=== PATIENT | male | born 1940 | race Caucasian/White ===

== ENCOUNTER 2020-08-15 09:51 | Inpatient (IN) | payer OTHER ==
--- OUTSIDE RECORDS SUMMARY | 2020-08-15 10:09 | XMS REPORT | Summary of Care ---
:1940 Author Organization [facility] Address [address] [place] [id number] Care Team Providers Name Role Phone Pcp, Patient Does Not Have A Primary Care Provider +[id number] 0-0000 Reason for Visit Reason Comments Assessment Encounter Details Date Type Department Care Team Description 06/01/2020 Telephone [facility] Miguel Angel Floyd MD Assessment Neurology-[address] [place] [id number] [address] [place] [address] [phone] Allergies Active Allergy Reactions Severity Noted Date Comments Epinephrine Unknown - See comments 06/13/2011 Was t old not to use while on Parkinson me ds Morphine Itching 05/23/2019 documented as of this encounter (statuses as of 06/05/2020) Medications Medication Sig Dispensed Refills Start Date End Date Status levothyroxine 25 mcg Take 25 mcg by 0 Active tablet mouth every morning. pioglitazone 30 mg Take 30 mg by mouth 0 Active tablet daily. glimepiride 4 mg Take 4 mg by mouth 0 Active tablet daily with breakfast. foLIC acid 1 mg Take 1 mg by mouth 0 Active tablet daily. triamterene-hydrochl Take 1 tablet by 0 Active orothiazid 37.5-25 mouth daily. mg tablet rOPINIRole 3 mg Take 6 mg by mouth 0 Active tablet at bedtime. losartan 25 mg Take 25 mg by mouth 0 Active tablet daily. escitalopram oxalate Take 20 mg by mouth 0 Active 20 mg tablet daily. gabapentin 300 mg Take 300 mg by 0 Active capsule mouth 3 (three) times daily. clonazePAM 0.5 mg Take 0.5 mg by 0 Active tablet mouth 3 (three) times daily. methotrexate 25 by Intramuscular 0 Active mg/mL injection route once now. inFLIXimab 100 mg Inject 0 Ac tive injection intravenously once now. aspirin (ASPIRIN LOW Take 81 mg by mouth 0 Active DOSE) 81 mg EC daily. tablet acetaminophen Take 650 mg by 0 A ctive (TYLENOL) 325 mg Cap mouth as needed. acetaminophen-codein Take 1 tablet by 0 Active e (TYLENOL-CODEINE mouth every 4 #3) 300-30 mg tablet (four) hours as needed. ZIPRASIDONE 20 mg TAKE 1 CAPSULE BY 90 capsule 1 01/18/2020 Active capsule MOUTH AT BEDTIME NEEDED FOR INSOMNIA. carbidopa-levodopa Take 2 tablets by 120 tablet 3 01/27/2020 Active 25-250 mg per mouth 2 (two) times tabletIndications: daily. 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 He states his dad's PCP prescribed Xanax and after the second dose hehad hallucinations. Reports he has not taken any more. Instructed to contact patient's PCP to followup d/t he prescribed RX. Reports patient is having anxiety issues. Will contact his sister to contact PCP. Closing encounter. elephone Encounter - Kamlesh Weaver - 06/01/2020 3:20 PM CDTJojose d Pineda is a 79 year old male hallucinating since taking xanax x 1 day,please contact at [phone] signed by Kamlesh Weaver at 06/01/2020 3:22 PM CDT documented in this encounter Plan of Treatment Health Maintenance Due Date Last Done Comments HgA1C 1941 EYE EXAM 1950 LDL-C 1950 URINE MICROALBUMIN 1950 FOOT EXAM 1958 DTaP,Tdap,and Td Vaccines (1 - Tdap) 1959 Zoster Recombinant Vaccine (SHINGRIX) 1990 (1 of 2) Medicare Wellness Visit 2005 PNEUMOCOCCAL VACCINES 65+ (1 of 1 - 2005 PPSV23) INFLUENZA VACCINE (#1) 2020 06/28/2018, 05/29/2018, 07/06/2017 CREATININE (SERUM) 06/24/2020 06/24/2019 Depression Screening 11/18/2020 11/18/2019 documented as of this encounter Results Not on filedocumented in this encounter Insurance Payer Benefit Plan Subscriber ID Effective Phone Address Typ e / Group Dates AETNA - AETNA [id number] 2014-[address] [employer] are Adv [place]NAGED [place]ICARE [place] nt [id number] [place] [address] documented as of this encounter Advance Directives Type Date 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
--- OUTSIDE RECORDS SUMMARY | 2020-08-15 10:09 | XMS REPORT | Continuity of Care Document ---
:1940 Author Organization [facility] t Address [address] [place] [address] Care Team Providers Name Role Phone Mariel BAILEY, Gene Attending Clinician Payers Payer Name Policy Type Policy Number Effective Date Expiration Date S ource Problems This patient has no known problems. Allergies, Adverse Reactions, Alerts Allergy Allergy Status Severity Reaction(s) Onset Inactive Treating Comm ents Source Name Type Date Date Clinician morphine DA Active [place] 2018- [facility] [place] morphine DA Active [place] 2018- [facility] [place] [facility] morphine DA Active [place] 2018- [facility] [place] [facility] No Known DA Active U 2019 [facility] [place] No Known DA Active U 2016- [facility]07 [place] [facility] Medications This patient has no known medications. Procedures This patient has no known procedures. Encounters Start End Encounter Admission Attending Care Care Encounter Source Date/Time Date/Time Type Type Clinicians Facility Department ID 2020-08-14 2020-08-14 [facility] Mariel [facility] [id number] 07:48:28 23:59:00 Encounter Migue lAngel Faria [id number] [place] [id number] [place] [id number] 2020-08-01 2020-08-01 Telephone Mariel [facility] [id number] 00:00:00 00:00:00 Miguel Angel Faria [id number] [place] 4[facility]7.2.686 [id number] n[facility] 092 Building Results Test Description Test Time Test Comments Results Result Comments Source GLUBED 2019-09-09 11:57:00 Test Item Value Reference Range Interpretation Comme nts GLUBED (test code = GLUBED) 173 mg/dL 60-125 H [id number] 06:06:00 Test Item Value Reference Range Interpretation Comments GLUBED (test code = GLUBED) 103 mg/dL 60-125 N [id number] 20:34:00 Test Item Value Reference Range Interpretation Comments GLUBED (test code = GLUBED) 177 mg/dL 60-125 H [id number] 16:54:00 Test Item Value Reference Range Interpretation Comments GLUBED (test code = GLUBED) 128 mg/dL 60-125 H [id number] 12:10:00 Test Item Value Reference Range Interpretation Comments GLUBED (test code = GLUBED) 193 mg/dL 60-125 H [id number] 05:51:00 Test Item Value Reference Range Interpretation Comments GLUBED (test code = GLUBED) 117 mg/dL 60-125 N [id number] 20:33:00 Test Item Value Reference Range Interpretation Comments GLUBED (test code = GLUBED) 219 mg/dL 60-125 H [id number] 17:04:00 Test Item Value Reference Range Interpretation Comments GLUBED (test code = GLUBED) 286 mg/dL 60-125 H [id number] 12:08:00 Test Item Value Reference Range Interpretation Comments GLUBED (test code = GLUBED) 145 mg/dL 60-125 H [id number] 12:08:00 Test Item Value Reference Range Interpretation Comments GLUBED (test code = GLUBED) 85 mg/dL 60-125 N [id number] 12:07:00 Test Item Value Reference Range Interpretation Comments GLUBED (test code = GLUBED) 265 mg/dL 60-125 H - XR SPINE 1 V SPEC [id number] 11:42:00 Patient Name: GUS HUDDLESTON Unit No: [id number] EXAMS: CPT CODE: [id number] XR SPINE 1 V SPEC LEVEL 93136 3 LATERAL INTRAOPERATIVE VIEWS OF THE LUMBAR SPINE Film 1: Markers overlies soft tissues posterior to L2. Film 2: Metal probes overlie the posterior elements at the L2 and L3 levels. Film 3: Metal probe overlies the L4 pedicle. at 1142 Reported and signed by: Pita Martínez MD CC: Denisse Stanley M.D. Technologist: LUIS DANIEL SANDOVAL. RT(R) Transcribed D/ (2451) tJULIÁNR.GVG [facility] [place] NAME: GUS HUDDLESTON [address] [facility] PHYS: Jason Almaraz MD : 1940 AGE: 79 SEX: M [place] [address] LOC: Y.506 A PHONE #: [phone] EXAM DATE: 09/06/2019 STATUS: REG [facility] FAX #: [phone] RAD #: [id number] D/C DT PAGE 1 Signed Report Patient Name: GUS HUDDLESTON Unit No: [id number] EXAMS: CPT CODE: [id number] XR SPINE 1 V SPEC LEVEL 21746 <Continued> Orig Print D/T: S: 09/07/2019 (7133) [facility] [place] NAME: GUS HUDDLESTON [address] [facility] PHYS: Jason Flores MD : 1940 AGE: 79 SEX: M [place] [address] LOC: Y.506 A PHONE #: [phone] EXAM DATE: 09/06/2019 STATUS: REG [facility] FAX #: [phone] RAD #: [id number] D/C DT PAGE 2 Signed Report- XR SPINE 1 V SPEC [id number] 11:42:00 Patient Name: GUS HUDDLESTON Unit No: [id number] EXAMS: CPT CODE: [id number] XR SPINE 1 V SPEC LEVEL 16154 3 LATERAL INTRAOPERATIVE VIEWS OF THE LUMBAR SPINE Film 1: Markers overlies soft tissues posterior to L2. Film 2: Metal probes overlie the posterior elements at the L2 and L3 levels. Film 3: Metal probe overlies the L4 pedicle. at 1142 Reported and signed by: Pita Martínez MD CC: Denisse Stanley M.D. Technologist: NATALIE BENSON (RT.R) Transcribed D/ (7953) Farzaneh.GVG [facility] [place] NAME: GUS HUDDLESTON [address] [facility] PHYS: Jason Flores MD : 1940 AGE: 79 SEX: M [place] [address] LOC: YKusum506 A PHONE #: [phone] EXAM DATE: 09/06/2019 STATUS: REG [facility] FAX #: [phone] RAD #: [id number] D/C DT PAGE 1 Signed Report Patient Name: GUS HUDDLESTON Unit No: [id number] EXAMS: CPT CODE: [id number] XR SPINE 1 V SPEC LEVEL 93200 <Continued> Orig Print D/T: S: 09/07/2019 (6546) [facility] [place] NAME: GUS HUDDLESTON [address] [facility] PHYS: Jason Flores MD : 1940 AGE: 79 SEX: M [place], [place] [address] LOC: Y.506 A PHONE #: [phone] EXAM DATE: 09/06/2019 STATUS: REG [facility] FAX #: [phone] RAD #: [id number] D/C DT PAGE 2 Signed Report- XR SPINE 1 V SPEC [id number] 11:42:00 Patient Name: GUS HUDDLESTON Unit No: [id number] EXAMS: CPT CODE: [id number] XR SPINE 1 V SPEC LEVEL 90087 3 LATERAL INTRAOPERATIVE VIEWS OF THE LUMBAR SPINE Film 1: Markers overlies soft tissues posterior to L2. Film 2: Metal probes overlie the posterior elements at the L2 and L3 levels. Film 3: Metal probe overlies the L4 pedicle. at 1142 Reported and signed by: Pita Martínez MD CC: Denisse Stanley M.D. Technologist: NATALIE BENSON (RT.R) Transcribed D/ (1216) tJULIÁNR.GVG [facility] [place] NAME: GUS HUDDLESTON [address] [facility] PHYS: Jason Flores MD : 1940 AGE: 79 SEX: M [place] [address] LOC: Y.506 A PHONE #: [phone] EXAM DATE: 09/06/2019 STATUS: REG [facility] FAX #: [phone] RAD #: [id number] D/C DT PAGE 1 Signed Report Patient Name: GUS HUDDLESTON Unit No: [id number] EXAMS: CPT CODE: [id number] XR SPINE 1 V SPEC LEVEL 92258 <Continued> Orig Print D/T: S: 09/07/2019 (3977) [facility] [place] NAME: GUS HUDDLESTON [address] [facility] PHYS: Jason Flores MD : 1940 AGE: 79 SEX: M [place] [address] LOC: Y.506 A PHONE #: [phone] EXAM DATE: 09/06/2019 STATUS: REG [facility] FAX #: [phone] [facility] #: [id number] D/C DT PAGE 2 Signed ReportBASIC METABOLIC [id number] 10:47:00 Test Item Value Reference Range Interpretation Comments SODIUM (test code = 139 mmol/L 136-145 N NA) POTASSIUM (test code = 4.7 mmol/L 3.5-5.1 N K) CHLORIDE (test code = 100.0 mmol/L 98-107 N CL) CARBON DIOXIDE (test 27.0 mmol/L 21-32 N code = CO2) GLUCOSE (test code = 271 mg/dL 70-110 H GLU) BLOOD UREA NITROGEN 18 mg/dL 7-18 N (test code = BUN) GLOMERULAR FILTRATION 81.4 >60 Unit o f measure: RATE (test code = GFR) mL/mi n/1.73 [id number] Range:Healthy Adults >90 mL/min/1.73 m2 For Chronic Kidney Disease: St age II Mild Decrease in GFR 60-90 St age III Moderate Decrease in GFR 30-59 Stage IV Severe Decre ase in GFR 15- 29 Stage V Kidney Failure <15 CREATININE (test code 0.90 mg/dL 0.55-1.30 N = CREAT) CALCIUM (test code = 8.5 mg/dL 8.2-10.1 N CA) [id number] 05:46:00 Test Item Value Reference Range Interpretation Comments GLUBED (test code = GLUBED) 199 mg/dL 60-125 H [id number] 10:36:00 Test Item Value Reference Range Interpretation Comments GLUBED (test code = GLUBED) 122 mg/dL 60-125 N BASIC METABOLIC [id number] 19:46:00 Test Item Value Reference Range Interpretation Comments SODIUM (test code = 138 mmol/L 136-145 N NA) POTASSIUM (test code = 4.4 mmol/L 3.5-5.1 N K) CHLORIDE (test code = 101.0 mmol/L 98-107 N CL) CARBON DIOXIDE (test 27.5 mmol/L 21-32 N code = CO2) GLUCOSE (test code = 143 mg/dL 70-110 H GLU) BLOOD UREA NITROGEN 20 mg/dL 7-18 H (test code = BUN) GLOMERULAR FILTRATION 114.4 >60 Unit o f measure: RATE (test code = GFR) mL/mi n/1.73 [id number] Range:Healthy Adults >90 mL/min/1.73 m2 For Chronic Kidney Disease: St age II Mild Decrease in GFR 60-90 St age III Moderate Decrease in GFR 30-59 Stage IV Severe Decre ase in GFR 15- 29 Stage V Kidney Failure <15 CREATININE (test code 0.67 mg/dL 0.55-1.30 N = CREAT) CALCIUM (test code = 8.8 mg/dL 8.2-10.1 N CA) URINALYSIS [id number] 17:07:00 Test Item Value Reference Range Interpretation Comments UA COLOR (test code = COLU) YELLOW YELLOW UA APPEARANCE (test code = CLEAR CLEAR APPU) UA GLUCOSE DIPSTICK (test code TRACE NEGATIVE A = DGLUU) UA BILIRUBIN DIPSTICK (test NEGATIVE NEGATIVE code = BILU) UA KETONE DIPSTICK (test code TRACE mg/dL NEGATIVE = KETU) UA SPECIFIC GRAVITY (test code >= 1.030 1.003-1.035 = SGU) UA BLOOD DIPSTICK (test code = NEGATIVE NEGATIVE RONALD) UA PH DIPSTICK (test code = 5.5 >6.5 CORA) UA PROTEIN DIPSTICK (test code NEGATIVE mg/dL NEG = PROU) UA UROBILINIOGEN DIPSTICK 0.2 mg/dL NORM (test code = URO) UA NITRITE DIPSTICK (test code NEGATIVE NEG = NORMAN) UA LEUKOCYTE ESTERASE DIPSTICK NEGATIVE NEGATIVE (test code = LEUU) UA WBC (test code = WBCU) <5 /HPF 0-2 UA RBC (test code = RBCU) 2-5 /HPF 0-2 A UA EPITHELIAL CELLS (test code RARE /HPF 0-2 = EPIU) UA BACTERIA (test code = BACU) FEW /HPF NONE UA MUCUS (test code = MUCU) 2+ /LPF NONE SEEN CBC W/AUTO [id number] 16:44:00 Test Item Value Reference Range Interpretation Comments WHITE BLOOD CELL (test code = WBC) 5.7 K/mm3 5.7-10.5 N RED BLOOD CELL (test code = RBC) 3.71 M/mm3 4.2-5.4 L HEMOGLOBIN (test code = HGB) 12.3 g/dL 12-16 N HEMATOCRIT (test code = HCT) 38.0 % 37-47 N MEAN CELL VOLUME (test code = MCV) 102 fL 80-98 H MEAN CELL HGB (test code = MCH) 33.2 pg 27-34 N MEAN CELL HGB CONCENTRATION (test 32.4 g/dL 30.8-34.1 N code = MCHC) RED CELL DISTRIBUTION WIDTH (test 14.5 % 11-16 N code = RDW) PLT (test code = PLT) 197 K/mm3 130-400 N MEAN PLATELET VOLUME (test code = 11.1 fL 8.9-12.1 N MPV) NEUTROPHIL % (test code = NT%) 66.3 % 45-70 N LYMPHOCYTE % (test code = LY%) 25.8 % 20-40 N MONOCYTE % (test code = MO%) 6.5 % 3-10 N EOSINOPHIL % (test code = EO%) 0.7 % 1-5 L BASOPHIL % (test code = BA%) 0.2 % 0.0-1.1 N NEUTROPHIL # (test code = NT#) 3.75 K/mm3 2.00-7.50 N LYMPHOCYTE # (test code = LY#) 1.46 K/mm3 1.50-4.00 L MONOCYTE # (test code = MO#) 0.37 K/mm3 0.2-0.8 N EOSINOPHIL # (test code = EO#) 0.04 K/mm3 0.04-0.4 N BASOPHIL # (test code = BA#) 0.01 K/mm3 0.02-0.10 L MANUAL DIFF REQUIRED (test code = NO MANUAL DIFF MDIFF) NUCLEATED RED BLOOD CELL (test 0 % 0-0 N code = NRBC) - XR FLUORO FOR SPINE [id number] 17:33:00 Patient Name: GUS HUDDLESTON Unit No: [id number] EXAMS: CPT CODE: [id number] XR FLUORO FOR SPINE INJ 75052 LUMBAR EPIRADICULAR INJECTION REFERRAL PHYSICIAN: Denisse Stanley M.D. PREOPERATIVE DIAGNOSIS: Lumbar Radiculitis POSTOPERATIVE DIAGNOSIS: L2-3 disc degeneration with spinal stenosis and possible bilateral lower extremity radicularclaudication PROCEDURES PERFORMED: Fluoroscopically guided needle localization of the bilateral L2 and bilateral L3 spinal nerves with transforaminal epidurograms and epiduralinjection of local anesthetic and steroid. FINDINGS: Somewhat tight flow seen through all foramen and proximal flow was very limited cephalad across the L2-3 degenerative disc that shows marked vacuum phenomena. Aspiration was negative. Provocation was negative. Anesthetic response was positive with the patient noting complete relief of his primary low back pain at time of procedure. Preinjection VAS 7/10. Postinjection VAS 0/10. Steroid response pending follow-up. ESTIMATED BLOOD LOSS: Minimal ANESTHESIA: TIVA COMPLICATIONS: None DETAILS OF PROCEDURE: After obtaining stable vital signs, informed consent and IV access, with no contraindications, the patient was taken to the operating room and placed in a prone position with all extremities padded and appropriate monitors placed. The patient was sterilely prepped and draped over the lumbosacral spine. Using fluoroscopic visualization the insertion sites were marked for paravertebral approaches and using standard technique, a 25 gauge needle was advanced to the base of each pedicle wi thout paresthesias. Isovue-300 contrast 0.2 mL of was injected incrementally with frequent negative aspirations to produce each epidurogram. There were no signs of intravascular or intrathecal uptake. Bupivicaine 0.75% 0.25 mL with lidocaine 4% 0.25 mL and Decadron 5 mg was then incrementally injected with frequent negative aspirations and again there were no signs of intravascular or intrathecal uptake. The needles were removed and the patient was taken tothe PACU in good condition. at 6403 Reported and signed by: Erik Nguyen M.D. CC: Technologist: Jessika Key(Leif) Transcribed D/ (5800) Oksana [facility] NAME: GUS HUDDLESTON [address] [facility] PHYS: Erik Castellano MD [place], [place] [address] : 1940 AGE: 78 SEX: M LOC: VetoDONA PHONE #: [phone] EXAM DATE: 05/26/2019 STATUS: REG [facility] FAX #: [phone] RAD #: [id number] D/C DT PAGE 1 Signed Report Patient Name: GUS HUDDLESTON Unit No: [id number] EXAMS: CPT CODE: [id number] XR FLUORO FOR SPINE INJ 20798 <Continued> Orig Print D/T: S: 05/26/2019 (1736) [facility] NAME: GUS HUDDLESTON [address] [facility] PHYS: Erik Castellano MD [place], [place] [address] : 1940 AGE: 78 SEX: M LOC: MARTIN PHONE #: [phone] EXAM DATE: 05/26/2019 STATUS: REG [facility] FAX #: [phone] RAD #: [id number] D/C DT PAGE 2 Signed [id number] 14:46:00 Test Item Value Reference Range Interpretation Comments GLUBED (test code = GLUBED) 103 mg/dL 60-125 N [id number] 13:12:00 Test Item Value Reference Range Interpretation Comments GLUBED (test code = GLUBED) 102 mg/dL 60-125 N - XR FLUORO FOR SPINE [id number] 11:04:00 Patient Name: GUS HUDDLESTON Unit No: [id number] EXAMS: CPT CODE: [id number] XR FLUORO FOR SPINE INJ 12977 LUMBAR EPIRADICULAR INJECTION REFERRAL PHYSICIAN: Denisse Stanley M.D. PREOPERATIVE DIAGNOSIS: Lumbar Radiculitis POSTOPERATIVE DIAGNOSIS: Markedly degenerative L2-3 disc with displacement, spinal stenosis and bilateral lower extremity radicular pain PROCEDURES PERFORMED: Fluoroscopically guided needle localization of the bilateral L2 and bilateral L3 spinal nerves with transforaminal epidurograms and epidural injection of local anesthetic and steroid. FINDINGS: Flow was obtained through all foramen however proximal flow was fairly obstructed across the L2-3 disc with moderate to marked anterior epidural displacement. Provocation with injection was negative. Anesthetic response was positive with the patient noting relief of his low back and bilateral thigh pain. Preinjection VAS 6/10. Postinjection VAS 0/10. Steroid response pending follow-up. ESTIMATED BLOOD LOSS: Minimal ANESTHESIA: TIVA COMPLICATIONS: None DETAILS OF PROCEDURE: After obtaining stable vital signs, informed consent and IV access, with no contraindications, the patient was taken to the operating room andplaced in a prone position with all extremities padded and appropriate monitors placed. The patient was sterilely prepped and draped over the lumbosacral spine. Using fluoroscopic visualization the insertion sites were marked for paravertebral approaches and using standard technique, a 25 gauge needle was advanced to the base of each pedicle without paresthesias. Isovue-300 contrast 0.2 mL of was injected incrementally with frequent negative aspirations to produce each epidurogram. There were no signs of intravascular or intrathecal uptake. Bupivicaine 0.75% 0.25 mL with lidocaine 4% 0.25 mL and Decadron 5 mg was then incrementally injected with frequent negative aspirations and again there were no signs of intravascular or intrathecal uptake. The needles were removed and the patient was taken to the PACU in good condition. Electronically Signed by Patrice Nguyen on04/20/2019 at 1104 Reported and signed by: Erik Nguyen M.D. CC: Rafael Ramos MD; Erik Nguyen MD Technologist: FAY MCDONALD RT(R) Transcribed D/ (6368) tJULIÁNR.[facility] NAME: GUS HUDDLESTON [address] [facility] PHYS: Erik Castellano MD [place], [place] [address] : 1940 AGE: 78 SEX: M LOC: MARTIN PHONE #: [phone] EXAM DATE: 04/19/2019 STATUS: [facility] FAX #: [phone] RAD#: [id number] D/C DT PAGE 1 Signed Report Patient Name: GUS HUDDLESTON Unit No: [id number] EXAMS: CPT CODE: [id number] XR FLUORO FOR SPINE INJ 45566 <Continued> Orig Print D/T: S: 04/20/2019 (9769) [facility] NAME: GUS HUDDLESTON [address] [facility] PHYS: Erik Castellano [place], [place] [address] : 1940 AGE: 78 SEX: M LOC: MARTIN PHONE #: [phone] EXAM DATE: 04/19/2019 STATUS: [facility] FAX #: [phone] RAD #: [id number] D/C DTPAGE 2 Signed [id number] 14:31:00 Test Item Value Reference Range Interpretation Comments GLUBED (test code = GLUBED) 100 mg/dL 60-125 N [id number] 11:14:00 Test Item Value Reference Range Interpretation Comments GLUBED (test code = GLUBED) 113 mg/dL 60-125 N - MRI LW JNT W/O CONT [id number] 09:11:00 Patient Name: GUS HUDDLESTON Unit No: [id number] EXAMS: CPT CODE: [id number] MRI LW JNT W/[place] [address] TECHNIQUE: Multiplanar, multisequence MRI of the right hip without contrast. COMPARISON: MR dated 03/22/2019 FINDINGS: Muscle and tendons: Focal intramuscular edema of the left gluteus medius is likely a strain. No significant muscle atrophy is visualized. Gluteal and hamstring tendons are largely intact. Scant trochanteric bursal edema is present bilaterally. Hip joints: No hip fracture is visualized. No evidence of femoral head osteonecrosis. No significant joint effusion. Complex tear of the right superior labrum is visualized. No secondary signs of high-grade cartilage loss. Sacroiliac joints/ spine: Sacroiliac joints are unremarkable. See recent MRI report for lumbar spine description. Bone: No femoral stress fracture is identified. Osseous structures are normal in signal intensity. No suspicious lesion visualized. Intrapelvic structures: No significant abnormality. IMPRESSION: 1. No e vidence of right hip stress fracture. 2. Complex tear of the right superior labrum. at 0911 Reported and signed by: Evin Wilkins M.D. CC: Denisse Stanley M.D. Technologist: Yesi Thomas(Lief) Transcribed D/ (0911) Farzaneh.Yimi [facility] NAME: GUS HUDDLESTON [address] [facility] PHYS: Jason Flores MD : 1940 AGE: 78 SEX: M [place], [place] [address] LOC: Y.MRI PHONE #: [phone] EXAM DATE: 03/30/2019 STATUS: [facility] FAX #: [phone] #: [id number] D/C DT PAGE 1 Signed Report Patient Name: GUS HUDDLESTON Unit No: [id number] EXAMS: CPT CODE: [id number] MRI LW JNT W/[place] [address] <Continued> Orig Print D/T: S: 04/01/2019 (0914) [facility] NAME: GUS LOVE [address] [facility] PHYS: Jason Flores MD : 1940 AGE: 78 SEX: M [place], [place] [address] LOC: Y.MRI PHONE #: [phone] EXAM DATE: 03/30/2019 STATUS: [facility] FAX #: [phone] RAD #: [id number] D/C DT PAGE 2 Signed Report- MRI L-SPINE W/O [id number] 15:03:00 Patient Name: GUS HUDDLESTON Unit No: [id number] EXAMS: CPT CODE: [id number] MRI L-SPINE W/O CONT 41064 DIAGNOSIS: 1. At L1-2 there is slight disc bulging without canal orforaminal narrowing. Comparison is made with the previous examination of February 14, 2013. 2. At L2-3 there is extensive bone marrow edema in the L2 and slightly less prominent but significant bone marrow edema in L3. Ill-defined low in intensity lines in the inferior aspect of L2 and the superior aspect of L3 are most consistent with fractures. There is a grade 1 retrolisthesis of L2 on L3 with associated disc bulging and moderate to marked bilateral f oraminal narrowing. There is marked constriction of the thecal sac due to the subluxation, disc and epidural lipomatosis as well as facet and ligamentum flavum hypertrophic and degenerative change. These changes were not present on the previous exam. 3. At L3-4 there is again noted to be disc bulging lateralizing 3 mm into the right neural foramen with moderate bilateral foraminal narrowing. Moderate to marked constriction of the thecal sac is seendue to facet and ligamentum flavum hypertrophic and degenerative change and epidural lipomatosis. 4. At L4-5 there is 5 mm of cephalad extruded right posterior lateral disc herniation as well as cephalad extruded herniation in the right and left neural foramina. There is compression of both L4 nerve roots with marked narrowing of the foramina. Moderate narrowing of the central canal is seen with facet and ligamentum flavum hypertrophic and degenerative change as well as endplate spur formation. 5. At L5-S1 there is endplate spur formation and discbulging with moderate to marked left foraminal narrowing and mild right-sided stenosis. COMMENT: COMPARISON: February 14, 2013 Scans were performed in the sagittal and axial planes utilizing T1, T2 and inversion recovery images. Abnormal marrow signal is present in the inferior aspect of L1, L2 and L3. Endplate and disc degeneration is present at all levels. There is a mild scoliosis convex left. Disc configurations are as described. Spondylitic changes are as noted. The conus is in the expected location.The description of the levels of these findings is consistent with the prior exam. [id number] Reported and signed by: Edgardo Christian MD CC: Denisse Stanley M.D. Technologist: Aimee Gongora RT(R) Transcribed D/ 1507) t.SDR.JCL [facility] NAME: GUS HUDDLESTON [address] [facility] PHYS: Jason Flores MD : 1940 AGE: 78 SEX: M [place], [place] [address] LOC: Y.MRI PHONE #: [phone] EXAM DATE: 03/22/2019 STATUS: REG [facility] FAX #: [phone] RAD #: [id number] D/C DT PAGE 1 Signed Report Patient Name: GUS HUDDLESTON Unit No: [id number] EXAMS: CPT CODE: [id number] MRI L-SPINE W/O CONT 40680 <Continued> Orig Print D/T: S: 03/22/2019 (1507) [facility] NAME: GUS HUDDLESTON [address] [facility] PHYS: Jason Flores MD : 1940 AGE: 78 SEX: M [place], [place] [address] LOC: Y.MRI PHONE #: [phone] EXAM DATE: 03/22/2019 STATUS:REG [facility] FAX #: [phone] RAD #: [id number] D/C DT PAGE 2 Signed [id number] 05:34:00 Test Item Value Reference Range Interpretation Comments GLUBED (test code = GLUBED) 140 mg/dL 60-125 H [id number] 20:42:00 Test Item Value Reference Range Interpretation Comments GLUBED (test code = GLUBED) 273 mg/dL 60-125 H [id number] 11:18:00 Test Item Value Reference Range Interpretation Comments GLUBED (test code = GLUBED) 195 mg/dL 60-125 H HGB [id number] 06:00:00 Test Item Value Reference Range Interpretation Comments HEMOGLOBIN (test code = HGB) 10.6 g/dL 12-16 L HEMATOCRIT (test code = HCT) 31.2 % 37-47 L SPECIMEN COMMENT: Draw H&H ONLY if Hgb less than 10.[id number] 05:53:00 Test Item Value Reference Range Interpretation Comments GLUBED (test code = GLUBED) 169 mg/dL 60-125 H [id number] 21:14:00 Test Item Value Reference Range Interpretation Comments GLUBED (test code = GLUBED) 249 mg/dL 60-125 H [id number] 18:19:00 Test Item Value Reference Range Interpretation Comments GLUBED (test code = GLUBED) 299 mg/dL 60-125 H [id number] 08:05:00 Test Item Value Reference Range Interpretation Comments GLUBED (test code = GLUBED) 114 mg/dL 60-125 N GLYCOSYLATED HEMOGLOBIN (HA1C)2018-10-20 22:58:00 Test Item Value Reference Range Interpretation Comments GLYCOSYLATED 7.6 % 4.8-5.9 H Any condition t hat shortens HEMOGLOBIN (HA1C) erythocyte survival or (test code = GLYHGB) decreas esmean erythrocyte age (e.g., dino very from acute blood los s,hemolytic anemai) will fa lsely lower HGBA1c resultsr egardless of the method used . HGBA1c results frompat ients with HbSS, HbCC and HbSc must be interpreted wit hcaution given the patho logical processes, incl uding anemia,increase d red cell turnover, trans fusion requirements, t hatadversely impact HGBA1c a s a marker of long-term glycemiccontrol . Alternative for ms of testing such as fructosaminesho uld be considered for these patients.DONE A T: [facility] [address] [place] [address] AB HIV 20:46:00 Test Item Value Reference Range Interpretation Comments AB HIV 1 (test code NONREACTIVE NONREACTIVE Done by Bidgelyaur = HIV1AB) 4th Gen HIV Ag/ Ab Combo Screen AB HIV 1 20:45:00 Test Item Value Reference Range Interpretation Comments AB HIV 1 2 (test NONREACTIVE NONREACTIVE Done by Joyusaur code = [id number]) 4th Gen HIV Ag/Ab Combo Screen COMPREHENSIVE METABOLIC [id number] 18:49:00 Test Item Value Reference Range Interpretation Comments SODIUM (test code = NA) 137 mmol/L 136-145 N POTASSIUM (test code = 4.0 mmol/L 3.5-5.1 N K) CHLORIDE (test code = 99.0 mmol/L 98-107 N CL) CARBON DIOXIDE (test 26.5 mmol/L 21-32 N code = CO2) GLUCOSE (test code = 164 mg/dL 70-110 H GLU) BLOOD UREA NITROGEN 20 mg/dL 7-18 H (test code = BUN) GLOMERULAR FILTRATION 83.8 >60 Unit o f measure: RATE (test code = GFR) mL/mi n/1.73 [id number] Range:Healthy Adults >90 mL/min/1.73 m2 For Chronic Kidney Disease: St age II Mild Decrease in GFR 60-90 St age III Moderate Decrease in GFR 30-59 Stage IV Severe Decre ase in GFR 15- 29 Stage V Kidney Failure <15 CREATININE (test code = 0.88 mg/dL 0.55-1.30 N CREAT) TOTAL PROTEIN (test 7.1 g/dL 6.4-8.2 N code = PROT) ALBUMIN (test code = 3.9 g/dL 3.4-5.0 N ALB) GLOBULIN (test code = 3.2 g/dL 2.2-4.2 N GLOB) ALBUMIN/GLOBULIN RATIO 1.2 0.7-2.0 N (test code = A/G) CALCIUM (test code = 9.0 mg/dL 8.2-10.1 N CA) BILIRUBIN TOTAL (test 0.39 mg/dL 0.2-1.00 N code = BILT) SGOT/AST (test code = 21.0 U/L 15-37 N AST) SGPT/ALT (test code = 14.0 U/L 12-78 N Please note new ALT) normal range. ALKALINE PHOSPHATASE 100 U/L 46-116 N TOTAL (test code = ALKP) PROTHROMBIN [id number] 18:49:00 Test Item Value Reference Range Interpretation Comments PROTHROMBIN TIME 11.9 secs 10.1-12.5 N PATIENT (test code = PTP) INTERNATIONAL NORMAL 1.05 <2.0 RECOMME NDED THERAPEUTIC RATIO (test code = RANGE FOR ORAL INR) ANTICOAGULANTTR EATMENT: CONDI TION INRProphylaxis of venous thrombos is in 2.0 - 3.0 high-risk medic al or surgical patientsTreatme nt of venous thrombos is 2.0 - 3.0Prevention o f embolism 2.0 - 3.0Prevention o f recurrent embol ism, or 3.0 - 4. 5 patients with mechanical pros thetic intravascular v valverde IS PATIENT ON ANTICOAGULANTS ? NHas Lab been notified if Patient is on Heparin Drip? NOIf Yes, orderCBC, OCCULT BLOOD, PT every other day NTHROMBOPLASTIN TIME [id number] 18:49:00 Test Item Value Reference Range Interpretation Comments PTT ACTIVATED (test code = APTT) 32.4 secs 24.9-37.0 N IS PATIENT ON ANTICOAGULANTS ? NHas Lab been notified if Patient is on Heparin Drip? NOIf Yes, orderCBC, OCCULT BLOOD, PT every other day NCBC W/AUTO DIFF 2018-10-20 17:40:00 Test Item Value Reference Range Interpretation Comments WHITE BLOOD CELL (test code = WBC) 5.3 K/mm3 5.7-10.5 L RED BLOOD CELL (test code = RBC) 3.88 M/mm3 4.2-5.4 L HEMOGLOBIN (test code = HGB) 13.3 g/dL 12-16 N HEMATOCRIT (test code = HCT) 38.7 % 37-47 N MEAN CELL VOLUME (test code = MCV) 100 fL 80-98 H MEAN CELL HGB (test code = MCH) 34.3 pg 27-34 H MEAN CELL HGB CONCENTRATION (test 34.4 g/dL 30.8-34.1 H code = MCHC) RED CELL DISTRIBUTION WIDTH (test 13.0 % 11-16 N code = RDW) PLT (test code = PLT) 176 K/mm3 130-400 N MEAN PLATELET VOLUME (test code = 12.3 fL 8.9-12.1 H MPV) NEUTROPHIL % (test code = NT%) 58.3 % 45-70 N LYMPHOCYTE % (test code = LY%) 30.7 % 20-40 N MONOCYTE % (test code = MO%) 9.1 % 3-10 N EOSINOPHIL % (test code = EO%) 1.1 % 1-5 N BASOPHIL % (test code = BA%) 0.4 % 0.0-1.1 N NEUTROPHIL # (test code = NT#) 3.08 K/mm3 2.00-7.50 N LYMPHOCYTE # (test code = LY#) 1.62 K/mm3 1.50-4.00 N MONOCYTE # (test code = MO#) 0.48 K/mm3 0.2-0.8 N EOSINOPHIL # (test code = EO#) 0.06 K/mm3 0.04-0.4 N BASOPHIL # (test code = BA#) 0.02 K/mm3 0.02-0.10 N MANUAL DIFF REQUIRED (test code = NO MANUAL DIFF MDIFF) NUCLEATED RED BLOOD CELL (test 0 % 0-0 N code = NRBC) URINALYSIS [id number] 17:15:00 Test Item Value Reference Range Interpretation Comments UA COLOR (test code = COLU) YELLOW YELLOW UA APPEARANCE (test code = APPU) CLEAR CLEAR UA GLUCOSE DIPSTICK (test code = NEGATIVE NEGATIVE DGLUU) UA BILIRUBIN DIPSTICK (test code = NEG NEGATIVE BILU) UA KETONE DIPSTICK (test code = NEG mg/dL NEGATIVE KETU) UA SPECIFIC GRAVITY (test code = 1.020 1.003-1.035 SGU) UA BLOOD DIPSTICK (test code = RONALD) NEG NEGATIVE UA PH DIPSTICK (test code = CORA) 6.0 >6.5 UA PROTEIN DIPSTICK (test code = NEG mg/dL NEG PROU) UA UROBILINIOGEN DIPSTICK (test 0.2 mg/dL NORM code = URO) UA NITRITE DIPSTICK (test code = NEG NEG NORMAN) UA LEUKOCYTE ESTERASE DIPSTICK NEG NEGATIVE (test code = LEUU) UA WBC (test code = WBCU) 0-2 /HPF 0-2 UA RBC (test code = RBCU) 0-2 /HPF 0-2 UA EPITHELIAL CELLS (test code = RARE /HPF 0-2 EPIU) UA BACTERIA (test code = BACU) FEW /HPF NONE UA MUCUS (test code = MUCU) 1+ /LPF NONE SEEN
--- OUTSIDE RECORDS SUMMARY | 2020-08-15 10:09 | XMS REPORT | Summary of Care ---
:1940 Author Organization [facility] Address [address] [place] [address] Care Team Providers Name Role Phone Pcp, Patient Does Not Have A Primary Care Provider +[phone] 0-0000 Reason for Visit Reason Comments Refill Request Rx Concern/Question Encounter Details Date Type Department Care Team Description 06/07/2020 Telephone [facility] Miguel Angel Floyd, Refill Request; Rx Neurology-Bienvenido BAILEY Concern/Question [address] [place], [place] [address], [address] [place] [phone] Allergies Active Allergy Reactions Severity Noted Date Comments Epinephrine Unknown - See comments 06/13/2011 Was t old not to use while on Parkinson me ds Morphine Itching 05/23/2019 documented as of this encounter (statuses as of 06/08/2020) Medications Medication Sig Dispensed Refills Start End Date Status Date levothyroxine 25 Take 25 mcg by 0 Active mcg tablet mouth every morning. pioglitazone 30 Take 30 mg by 0 Active mg tablet mouth daily. glimepiride 4 mg Take 4 mg by 0 Active tablet mouth daily with breakfast. foLIC acid 1 mg Take 1 mg by 0 A ctive tablet mouth daily. triamterene-hydro Take 1 tablet by 0 Active chlorothiazid mouth daily. 37.5-25 mg tablet rOPINIRole 3 mg Take 6 mg by 0 A ctive tablet mouth at bedtime. losartan 25 mg Take 25 mg by 0 A ctive tablet mouth daily. escitalopram Take 20 mg by 0 Act kaley oxalate 20 mg mouth daily. tablet gabapentin 300 mg Take 300 mg by 0 Active capsule mouth 3 (three) times daily. clonazePAM 0.5 mg Take 0.5 mg by 0 Active tablet mouth 3 (three) times daily. methotrexate 25 by Intramuscular 0 Active mg/mL injection route once now. inFLIXimab 100 mg Inject 0 Ac tive injection intravenously once now. aspirin (ASPIRIN Take 81 mg by 0 Active LOW DOSE) 81 mg mouth daily. EC tablet acetaminophen Take 650 mg by 0 A ctive (TYLENOL) 325 mg mouth as needed. Cap acetaminophen-cod Take 1 tablet by 0 Active eine mouth every 4 (TYLENOL-CODEINE (four) hours as #3) 300-30 mg needed. tablet ZIPRASIDONE 20 mg TAKE 1 CAPSULE BY 90 capsule 1 Active capsule MOUTH AT BEDTIME 0 NEEDED FOR INSOMNIA. carbidopa-levodop TAKE TWO TABS AT 630 tablet 1 Active a 25-100 mg 11 AM, 3 TABS AT 0 tablet 4PM AND 2 TABS AT 9PM ENTACAPONE 200 mg TAKE 1 TABLET BY 360 tablet 1 Active tabletIndications MOUTH FOUR TIMES 0 : Parkinson's A DAY plus syndrome carbidopa-levodop Take 2 tablets by 120 tablet 3 Active a 25-250 mg per mouth 2 (two) 0 tabletIndications times daily. : Parkinson's plus syndrome carbidopa-levodop Take 2 tablets by 120 tablet 3 08/17 Discontinued a 25-250 mg per mouth 2 (two) 0 20 (Reorder) tabletIndications times daily. 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 Floyd I spoke to Mike, patient's son and he reports he is taking 2 pills BID. I did send in a refill. elephone Encounter - Miguel Angel Floyd MD - 06/08/2020 9:49 AM CDTCan you call the son of patient and make sure the dose of sinemet he is giving patient is 2 tablets by mouth BID. There had been recent changes with the patient. elephone Encounter - Hollie Neumann - 06/07/2020 3:25 PM CDTSummary: carbidopa-levodopa 25-250 mg per tablet Tricia Pineda is a 79 year old male Patient son is calling 1. For a refill 2. 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
--- OUTSIDE RECORDS SUMMARY | 2020-08-15 10:10 | XMS REPORT | Summary of Care ---
:[address] [facility] Address [address] [place] [address] Care Team Providers Name Role Phone Pcp, Patient Does Not Have A Primary Care Provider +1-000-00 0-0000 Reason for Visit Reason Comments Refill Request Encounter Details Date Type Department Care Team Description 06/18/2020 Refill [facility] Miguel Angel Floyd MD Refill Request Neurology-[address] [place] [phone] [address] [place] [address] [phone] Allergies Active Allergy Reactions Severity Noted Date Comments Epinephrine Unknown - See comments 06/13/2011 Was t old not to use while on Parkinson me ds Morphine Itching 05/23/2019 documented as of this encounter (statuses as of 06/18/2020) Medications Medication Sig Dispensed Refills Start Date [...] MOUTH AT BEDTIME NEEDED FOR INSOMNIA. carbidopa-levodopa TAKE TWO TABS AT 11 630 tablet 1 02/17/2020 Active 25-100 mg tablet AM, 3 TABS AT 4PM AND 2 TABS AT 9PM ENTACAPONE 200 mg TAKE 1 TABLET BY 360 tablet 1 03/02/2020 Active tabletIndications: MOUTH FOUR TIMES A Parkinson's plus DAY syndrome carbidopa-levodopa Take 2 tablets by 120 tablet 3 06/08/2020 Active 25-250 mg per mouth 2 (two) times tabletIndications: daily. 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 documented as of this encounter (statuses as of 06/18/2020) Social History Tobacco Use Types Packs/Day Years Used Date Never Smoker Smokeless Tobacco: Never Used Alcohol Use Drinks/Week oz/Week Comments No Sex Assigned at Date Recorded Not on file documented as of this encounter Last Filed Vital Signs Not on filedocumented in this encounter Plan of Treatment Health [...] e / Group Dates AETNA - AETNA [id number] 2014-Lavern P O BOX Medic are Adv MANAGED MEDICARE ADV nt [id number] [place] [address] documented as of this encounter Advance Directives Type Date 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
--- OUTSIDE RECORDS SUMMARY | 2020-08-15 10:10 | XMS REPORT | Summary of Care ---
:1940 Author Organization [facility] Address [address] [place] [address] Care Team Providers Name Role Phone Pcp, Patient Does Not Have A Primary Care Provider +1-000-00 0-0000 Reason for Visit Reason Comments Assessment Encounter Details Date Type Department Care Team Description 07/04/2020 Telephone [facility] Miguel Angel Floyd MD Assessment Neurology-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 He has an appointment 07-10. Reports he is keeping PCP in the loop aswell. elephone Encounter - Miguel Angel Floyd MD - 07/06/2020 1:51 PM CDTYou are correct, unfortunately the patient is declining. We can see him next week but primary care provider is going to need to stay involved in this case as well. elephone Encounter - Marilin Lerner LVN - 07/04/2020 1:[address] ADELAIDA Floyd. Spoke to Mike, patient's son. Shared concerns of father has a decline. His walking is worse. Still choking when eats, even with food mashed up. Patient is not wanting to eat and has lost a lot ofweight. Thin liquids seem to choke him. Still having SOB even with inhalers. Checked O2 saturations and they are good. Have tried xanax and clonazepam, he has hallucinations with them. States he feels like he is suffocating. Told him to try pursed lip breathing to see if it will help. Encouraged him to contact PCP and let them know the inhalers do not seem to be helping. Set up appointment for next week per his request to be reevaluated. elephone Encounter - Lisbeth Lopez - 07/04/2020 12:58 PM CDTJoluigicely Pineda is a 80 year old male son calling to speak with clinic regarding new Parkinson symptoms and discuss what can be done. Please call. [phone] documented in this encounter Plan of Treatment Date Type Specialty Care Team Description 07/10/2020 Office Visit Neurology Miguel Angel Floyd MD [address] [place], [place] [address]d. 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
--- OUTSIDE RECORDS SUMMARY | 2020-08-15 10:10 | XMS REPORT | Summary of Care ---
:1940 Author Organization [facility] Address [address] [place] [address] Care Team Providers Name Role Phone Pcp, Patient Does Not Have A Primary Care Provider +1-000-00 0-0000 Reason for Visit Reason Comments Refill Request Encounter Details Date Type Department Care Team Description 07/08/2020 Refill [facility] Miguel Angel Floyd MD Refill Request Neurology-[address] [place] [phone] [address] [place] [address] [phone] Allergies Active Allergy Reactions Severity Noted Date Comments Epinephrine Unknown - See comments 06/13/2011 Was t old not to use while on Parkinson me ds Morphine Itching 05/23/2019 documented as of this encounter (statuses as of 07/09/2020) Medications Medication Sig Dispensed Refills Start End Date Status Date levothyroxine 25 Take 25 mcg by 0 Active mcg tablet mouth every morning. pioglitazone 30 mg Take 30 mg by 0 Active tablet mouth daily. glimepiride 4 mg Take 4 mg by mouth 0 Active tablet daily with breakfast. foLIC acid 1 mg Take 1 mg by mouth 0 Active tablet daily. triamterene-hydroc Take 1 tablet by 0 Active hlorothiazid mouth daily. 37.5-25 mg tablet rOPINIRole 3 [...] by 0 Active LOW DOSE) 81 mg EC mouth daily. tablet acetaminophen Take 650 mg by 0 A ctive (TYLENOL) 325 mg mouth as needed. Cap acetaminophen-code Take 1 tablet by 0 Active ine mouth every 4 (TYLENOL-CODEINE (four) hours as #3) 300-30 mg needed. tablet carbidopa-levodopa TAKE TWO TABS AT 630 tablet 1 Active 25-100 mg tablet 11 AM, 3 TABS AT 0 4PM AND 2 TABS AT 9PM ENTACAPONE 200 mg TAKE 1 TABLET BY 360 tablet 1 Active tabletIndications: MOUTH FOUR TIMES A 0 Parkinson's plus DAY syndrome carbidopa-levodopa Take 2 tablets by 120 tablet 3 Active 25-250 mg per mouth 2 (two) 0 tabletIndications: times daily. Parkinson's plus syndrome ZIPRASIDONE 20 mg TAKE 1 CAPSULE BY 90 capsule 0 Active capsule MOUTH AT BEDTIME 0 NEEDED FOR INSOMNIA. ZIPRASIDONE 20 mg TAKE 1 CAPSULE BY 90 capsule 1 09/16 Discontinued capsule MOUTH AT BEDTIME 0 20 NEEDED FOR INSOMNIA. 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 documented as of this encounter (statuses as of 07/09/2020) Social History Tobacco Use Types Packs/Day Years Used Date Never Smoker Smokeless Tobacco: Never Used Alcohol Use Drinks/Week oz/Week Comments No Sex Assigned at Date Recorded Not on file documented as of this encounter Last Filed Vital Signs Not on filedocumented in this encounter Miscellaneous Notes Telephone Encounter - Marilin Lerner LVN - 07/09/2020 11:55 AM CDT Received erx refill request for: Requested Prescriptions Pending Prescriptions Disp Refills ZIPRASIDONE 20 mg capsule [Pharmacy Med Name: ZIPRASIDONE HCL 20 MG CAPSULE] 90 capsule 1 Sig: TAKE 1 CAPSULE BY MOUTH AT BEDTIME NEEDED FOR INSOMNIA. Last filled: ZIPRASIDONE 20 mg capsule 90 capsule 1 01/18/2020 Follow up scheduled for :07-10-20 Last office visit: 02-28-20 Refilled approval sent to: Pharmacy: [id number] [place], [place] - [address] [address] [facility] - [place], [place] - [address] [place] [address] Refilled per Guidelines documented in this encounter Plan of Treatment Date Type Specialty Care Team Description 07/10/2020 Office Visit Neurology Miguel Angel Floyd MD [address] [place] [address] [address] 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
--- OUTSIDE RECORDS SUMMARY | 2020-08-15 10:10 | XMS REPORT | Summary of Care ---
:1940 Author [address] [facility] Address [address] [place] [address] Care Team Providers Name Role Phone Pcp, Patient Does Not Have A Primary Care Provider +1-000-00 0-0000 Reason for Visit Reason Comments Refill Request Encounter Details Date Type Department Care Team Description 07/13/2020 Refill [facility] Miguel Angel Floyd MD Refill Request Neurology-[address] [place] [phone] [address] [place] [address] [phone] Allergies Active Allergy Reactions Severity Noted Date Comments Epinephrine Unknown - See comments 06/13/2011 Was t old not to use while on Parkinson me ds Morphine Itching 05/23/2019 documented as of this encounter (statuses as of 07/13/2020) Medications Medication Sig Dispensed Refills Start Date [...] 300-30 mg tablet (four) hours as needed. ENTACAPONE 200 mg TAKE 1 TABLET BY 360 tablet 1 03/02/2020 Active tabletIndications: MOUTH FOUR TIMES A Parkinson's plus DAY syndrome ZIPRASIDONE 20 mg TAKE 1 CAPSULE BY 90 capsule 0 07/09/2020 Active capsule MOUTH AT BEDTIME NEEDED FOR INSOMNIA. carbidopa-levodopa TAKE TWO TABS AT 11 630 tablet 1 07/10/2020 Active 25-100 mg tablet AM, 3 TABS AT 4PM AND 2 TABS AT 9PM carbidopa-levodopa Take 2 tablets by 120 tablet 3 07/10/2020 Active 25-250 mg per mouth 2 (two) times tabletIndications: daily. 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
--- OUTSIDE RECORDS SUMMARY | 2020-08-15 10:11 | XMS REPORT | Summary of Care ---
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 [place] [address] Reason for Visit Reason Comments Orders Barium Test Encounter Details Date Type Department Care Team Description 08/01/2020 Telephone [facility] Miguel Angel Floyd Orders (Barium Test) Neurology-Bienvenido BAILEY [address] [place] [address], [address] [place] [address]. [address] [place] [phone] Allergies Active Allergy Reactions Severity Noted Date Comments Epinephrine Unknown - See comments 06/13/2011 Was t old not to use while on Parkinson me ds Morphine Itching 05/23/2019 documented as of this encounter (statuses as of 08/03/2020) Medications Medication Sig Dispensed Refills Start Date [...] as of this encounter (statuses as of 08/03/2020) Active Problems Problem Noted Date Other testicular hypofunction 04/21/2013 Type 2 diabetes mellitus without complications 013 Overview: ICD10 Diagnosis Term Administrator Of Home Health Utility documented as of this encounter (statuses as of 08/03/2020) Social History Tobacco Use Types Packs/Day Years [...] this encounter Miscellaneous Notes Telephone Encounter - Niesha Ray LVN - 08/03/2020 4:47 PM CSTNurse spoke with son and let son know that order was put in. Son will call back if he has not heardfrom anyone next week. NIESHA RAY LVN 08/03/2020 4:48 PM elephone Encounter - Dari Irby - 08/01/2020 11:12 AM Radha Pineda is a 80 year old male Son is calling wondering when the barium swallow test is going to ordered. 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
--- OUTSIDE RECORDS SUMMARY | 2020-08-15 10:11 | XMS REPORT | Summary of Care ---
:1940 Author Organization [facility] Address [address] [place] [address] Care Team Providers Name Role Phone Pcp, Patient Does Not Have A Primary Care Provider [phone] Reason for Visit Reason Comments Follow-up Encounter Details Date Type Department Care Team Description 07/10/[address] 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 [phone] Allergies Active Allergy Reactions Severity Noted Date Comments Epinephrine Unknown - See comments 06/13/2011 Was t old not to use while on Parkinson me ds Morphine Itching 05/23/2019 documented as of this encounter (statuses as of 07/17/2020) Medications Medication Sig Dispensed Refills Start End [...] hours as #3) 300-30 mg needed. tablet ENTACAPONE 200 mg TAKE 1 TABLET BY 360 tablet 1 Active tabletIndications MOUTH FOUR TIMES 0 : Parkinson's A DAY plus syndrome ZIPRASIDONE 20 mg TAKE 1 CAPSULE BY 90 capsule 0 Active capsule MOUTH AT BEDTIME 0 NEEDED FOR INSOMNIA. carbidopa-levodop TAKE TWO TABS AT 630 tablet 1 Active a 25-100 mg 11 AM, 3 TABS AT 0 tablet 4PM AND 2 TABS AT 9PM carbidopa-levodop Take 2 tablets by 120 tablet 3 Active a 25-250 mg per mouth 2 (two) 0 tabletIndications times daily. : Parkinson's plus syndrome carbidopa-levodop TAKE TWO TABS AT 630 tablet 1 06/28 Discontinued a 25-100 mg 11 AM, 3 TABS AT 0 20 ( Reorder) tablet 4PM AND 2 TABS AT 9PM carbidopa-levodop Take 2 tablets by 120 tablet 3 Discontinued a 25-250 mg per mouth 2 (two) 0 20 (Reorder) tabletIndications times daily. 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 Utility documented as of this encounter (statuses as of 07/17/2020) Social History Tobacco Use Types Packs/Day Years [...] of this encounter Last Filed Vital Signs Vital Sign Reading Time Taken Comments Blood Pressure 99/65 07/10/2020 4:29 PM CDT Pulse 70 07/10/2020 4:29 PM CDT Temperature - - Respiratory Rate - - Oxygen Saturation 98% 07/10/2020 4:29 PM CDT Inhaled Oxygen Concentration - - Weight 72.1 kg (159 lb) 07/10/2020 4:29 PM CDT Height 188 cm (6' 2") 07/10/2020 4:29 PM CDT Body Mass Index 20.41 07/10/2020 4:29 PM CDT documented in this encounter Progress Notes Miguel Angel Floyd MD - 07/10/2020 3:40 PM CDT HISTORY OF PRESENT ILLNESS: Tricia Pineda is a 80 year old male. Chief complaint: increasing difficulty with swallowing, parkinsonism may be a variant, weight loss. History: The patient is here today with his son. He is having increasing trouble with swallowing, and he is losing weight. He can still stand up and walk some according to the son, they have checked inwith Dr. Ramos as well. There has been some discussion about the use of feeding tubes, this is something I do not advise but I did tell the son and the patient that ultimately that was their decision. The son suspects that the swallowing difficulties are coming because of the neurodegenerative disorder. Son not reporting any new issues with the diabetes. PMH: has a past medical history of Parkinson disease, Thyroid disease, Type II or unspecified type diabetes mellitus without mention of complication, not stated as uncontrolled, and Ulcerative colitis. Current Outpatient Medications: carbidopa-levodopa 25-100 mg tablet, TAKE TWO TABS AT 11 AM, 3 TABS AT 4PM AND 2 TABS AT 9PM, Disp: 630 tablet, Rfl: 1 carbidopa-levodopa 25-250 mg per tablet, Take 2 tablets by mouth 2 (two) times daily., Disp: 120 tablet, Rfl: 3 ZIPRASIDONE 20 mg capsule, TAKE 1 CAPSULE BY MOUTH AT BEDTIME NEEDED FOR INSOMNIA., Disp: 90capsule, Rfl: 0 ENTACAPONE 200 mg tablet, TAKE 1 TABLET BY MOUTH FOUR TIMES A DAY, Disp: 360 tablet, Rfl: 1 acetaminophen (TYLENOL) 325 mg Cap, Take 650 mg by mouth as needed., Disp: , Rfl: acetaminophen-codeine (TYLENOL-CODEINE #3) 300-30 mg tablet, Take 1 tablet by mouth every 4 (four) hours as needed., Disp: , Rfl: aspirin (ASPIRIN LOW DOSE) 81 mg EC tablet, Take 81 mg by mouth daily., Disp: , Rfl: clonazePAM 0.5 mg tablet, Take 0.5 mg by mouth 3 (three) times daily., Disp: , Rfl: escitalopram oxalate 20 mg tablet, Take 20 mg by mouth daily., Disp: , Rfl: foLIC acid 1 mg tablet, Take 1 mg by mouth daily., Disp: , Rfl: gabapentin 300 mg capsule, Take 300 mg by mouth 3 (three) times daily., Disp: , Rfl: glimepiride 4 mg tablet, Take 4 mg by mouth daily with breakfast., Disp: , Rfl: inFLIXimab 100 mg injection, Inject intravenously once now., Disp: , Rfl: levothyroxine 25 mcg tablet, Take 25 mcg by mouth every morning., Disp: , Rfl: losartan 25 mg tablet, Take 25 mg by mouth daily., Disp: , Rfl: methotrexate 25 mg/mL injection, by Intramuscular route once now., Disp: , Rfl: pioglitazone 30 mg tablet, Take 30 mg by mouth daily., Disp: , Rfl: rOPINIRole 3 mg tablet, Take 6 mg by mouth at bedtime., Disp: , Rfl: triamterene-hydrochlorothiazid 37.5-25 mg tablet, Take 1 tablet by mouth daily., Disp: , Rfl: No family history on file. Social History Socioeconomic History Marital status: Spouse name: Not on file Number of children: Not on file Years of education: Not on file Highest education level: Not on file Occupational History Not on file Social Needs Financial resource strain: Not on file Food insecurity Worry: Not on file Inability: Not on file Transportation needs Medical: Not on file Non-medical: Not on file Tobacco Use Smoking status: Never Smoker Smokeless tobacco: Never Used Substance and Sexual Activity Alcohol use: No Drug use: No Sexual activity: Yes Lifestyle Physical activity Days per week: Not on file Minutes per session: Not on file Stress: Not on file Relationships Social connections Talks on phone: Not on file Gets together: Not on file Attends synagogue service: Not on file Active member of club or organization: Not on file Attends meetings of clubs or organizations: Not on file Relationship status: Not on file Intimate partner violence Fear of current or ex partner: Not on file Emotionally abused: Not on file Physically abused: Not on file Forced sexual activity: Not on file Other Topics Concern Not on file Social History Narrative Not on file Vital signs: BP 99/65 (BP Location: Left arm, Patient Position: Sitting, BP CUFF SIZE: Adult Medium) | Pulse 70| Ht 6' 2" (1.88 m) | Wt 159 lb (72.1 kg) | SpO2 98% | BMI 20.41 kg/m General findings: alert and cooperative, but speech dysarthric, not intelligible. gradually getting harder to understand. He looks noticeably more thin. Additionally I noted that occasionally he would look up into the right, for no particular reason. No tremor. Mask facles present. no focal weakness of the arms or legs, but tone mildly increased in arms and legs with cogwheeling component. He is able to stand up. He is not stable for ambulating on his own. He also seems to be becoming more bradykinetic. ASSESSMENT AND RECOMMENDATIONS: ICD-10-CM ICD-9-CM 1. Type 2 diabetes mellitus without complication, unspecified whether correction insulin use E11.9 250.00 2. Parkinson's plus syndrome G23.2 333.0 3. Weight loss, unintentional R63.4 783.21 Impression: I agree with the son that I think the swallowing deficit is likely related to parkinsonism and also makes me wonder especially if he has a Parkinson's plus syndrome. We did spend 13 minutesof the 25 minute office visit discussing parkinsonism and also whether or not a feeding tube would be indicated. Patient quite honestly has not decided yet about that issue. I did tell them we could get a swallowing study, as the sun was concerned about aspiration. I had suggested he go off of the Geodon, not sure if he really needs it at this point and it is possible that extrapyramidal side effectscould exacerbate the swallowing issue. Son is going to otherwise keep me posted related to the patient progress. Creation of the note was aided by utilizing a cut/paste operation of text from a Microsoft Word template created with [employer]. The text was dictated into the template via Dragon Naturally Speaking. 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
--- OUTSIDE RECORDS SUMMARY | 2020-08-15 10:11 | XMS REPORT | Summary of Care ---
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 Parkinson's plus [...] from a Microsoft Word template created with [employer] (now [employer]). 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
--- OUTSIDE RECORDS SUMMARY | 2020-08-15 10:11 | XMS REPORT | Summary of Care ---
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 [place] [address] Reason for Visit Reason Comments Orders Barium Test Encounter Details Date Type Department Care Team Description 08/01/2020 Telephone [facility] Miguel Angel Floyd Orders (Barium Test) Neurology-Bienvenido BAILEY [address] [place] [address], [address] [place] [address]. 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
--- OUTSIDE RECORDS SUMMARY | 2020-08-15 10:11 | XMS REPORT | Summary of Care ---
:1940 Author Organization 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 Paralysis Miguel Angel Rivera Radiology Procedures FL BARIUM SWALLOW ESOPHAGUS MD Camilo [address] [place] [phone] Reason for Visit (Routine) Status Reason Specialty Diagnoses / Referred By Referred To Procedures Contact Contact Closed Diagnostic Diagnoses Parkinson's plus syndrome Weight loss, unintentional 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 Paralysis Miguel Angel Rivera Radiology Procedures FL BARIUM SWALLOW ESOPHAGUS MD Camilo [address] [place] [phone] Encounter Details Date Type Department Care Team Description 08/14/2020 Hospital Encounter Person [facility] Sabina Floyd Arrived [facility] [address] [place] [phone] Allergies Active Allergy Reactions Severity Noted Date Comments Epinephrine Unknown - See comments 06/13/2011 Was t old not to use while on Parkinson me ds Morphine Itching 05/23/2019 documented as of this encounter (statuses as of 08/15/2020) Medications Medication Sig Dispensed Refills Start Date [...] as of this encounter (statuses as of 08/15/2020) Active Problems Problem Noted Date Other testicular hypofunction 04/21/2013 Type 2 diabetes mellitus without complications 013 Overview: ICD10 Diagnosis 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 Patient complaining o f coughing PACS/VR/DOSE episodes while eating. Rule out aspiration. TECHNIQUE: Barium swallow/esophagram wer e obtained using overhead radiography technique as well as digital fluoroscopic technique done by me with the patient in multiple positions. FINDINGS: Only single AP view using over head radiography and with only single swallow during fluoroscopic imagi ng were utilized. Aspiration of barium was noted into the trachea and ri ght posterior upper lobe as well as superior segment right lower lobe bron chial airways. This was noticed on a single overhead radiogr aph. Subsequently only one oral barium swallow was given under fluoroscopic visualizat ion to evaluate for possibility of tracheoesophageal fistula . No TE fistula detected. Persistent pooli ng of barium is noted in the hypopharynx and oropharynx as well as in the middle and lower trachea. Middle and lower esophagus showed tertia ry uncoordinated peristaltic activity, consistent with so-called Presbyesophagus, a lthough there is no significant dilatation of the esophageal lumen. Short sliding hiatal hernia suspected. CONCLUSIONS: Barium aspiration into the trachea and right bronchial airways. Persistent pooling of barium in the oropharyn x and hypopharynx is suggestive of muscular weakness. Procedure Note [facility], Radiant Results Inft User - 2019 10:00 AM CONTENT MANAGER HISTORY: History of Parkinson's. Patient complaining of coughing episodes while eating. Rule out aspiration. TECHNIQUE: Barium swallow/esophagram wer e obtained using overhead radiography technique as well as digital fluoroscopic technique done by me with the patient in multiple positions. FINDINGS: Only single AP view using over head radiography and with only single swallow during fluoroscopic imagi ng were utilized. Aspiration of barium was noted into the trachea and right posterior upper lobe as well as superior segment right l ower lobe bronchial airways. This was noticed on a single overhead radiogr aph. Subsequently only one oral barium swallow was given under fluorosco pic visualization to evaluate for possibility of tracheoesophageal fistula . No TE fistula detected. Persistent pooli ng of barium is noted in the hypopharynx and oropharynx as well as in the middle and lower trachea. Middle and lower esophagus showed tertia ry uncoordinated peristaltic activity, consistent with so-called Pres byesophagus, although there is no significant dilatation of the esophageal lumen. Short sliding hiatal hernia suspected. CONCLUSIONS: Barium aspiration into the trachea and right bronchial airways. Persistent pooling of barium in the oropharynx and hypopharynx is suggestive of muscular weakness. 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 Paralysis agitans documented in this encounter Administered Medications Medication Order MAR Action Action Date Dose Rate Site barium sulfate (LIQUID E-Z PAQUE) Given 08/14/2020 9:52 AM CONTENT MANAGER 340 g 60 % (w/v) oral suspension 340 g 340 g, Oral, ONCE, 1 dose, Tu08/14/20 at 0945, Routine documented in this encounter Insurance Payer Benefit Plan Subscriber ID Effective Phone Address Typ e / Group Dates AETNA - AETNA [id number] 2014-[place] [address] Medic are Adv MANAGED MEDICARE ADV nt [id number] [place] [address] documented as of this encounter Advance Directives Type Date Recorded Patient Presbyterian Clergy Explanati on Advance Directives and Living Will Power of Paperhanger Contractor
[2020-08-15 10:29] LABS: Absolute Lymphocytes (CBC) 1.5 K/uL (0.7-4.9); Basophils % 0.8 % (0-1.3); Hematocrit 36.4 % (39.6-49.0); Lymphocytes % 20.1 % (15.3-44.8); MPV 9.4 fL (7.6-11.3)
[2020-08-15] MEDS ORDERED: NA CHLORIDE 0.9% 500 ML ONE (10:29)
[2020-08-15 10:39] LABS: Protime INR 1.03
[2020-08-15 10:54] LABS: ALT/SGPT 8 U/L (12-78); AST/SGOT 20 U/L (15-37); Albumin 2.9 g/dL (3.4-5.0); Alkaline Phosphatase 101 U/L (45-117); Amylase 48 U/L (25-115); BUN Blood Urea Nitrogen 24 mg/dL (7-18); Bicarbonate 32 mmol/L (21-32); Bilirubin Direct < 0.1 mg/dL (0-0.2); Bilirubin Total 0.4 mg/dL (0.2-1.0); CKMB Creatine Kinase MB 1.6 ng/mL (0.3-3.6); Creatine Phosphokinase 51 U/L (39-308); Glucose Level 209 mg/dL (74-106); Lipase 49 U/L (73-393); Potassium 4.4 mmol/L (3.5-5.1); Protein, Total 7.4 g/dL (6.4-8.2); Sodium Level 139 mmol/L (136-145); Troponin (Emerg Dept Use Only) < 0.02 ng/mL (0.0-0.045)
--- NOTE | 2020-08-15 11:44 | RAD REPORT ---
EXAM DESCRIPTION: CT - Head Brain Wo Cont - 08/15/2020 10:44 am CLINICAL HISTORY: CONFUSED COMPARISON: No comparisons TECHNIQUE: Axial 5 mm thick images of the head were obtained without IV contrast. All CT scans are performed using dose optimization technique as appropriate and may include automated exposure control or mA/KV adjustment according to patient size. FINDINGS: No intracranial hemorrhage, mass, edema or shift of mid-line structures. No acute cortical based infarction identified. No cortical edema or sulcal effacement. Moderate atrophy changes are pr esent. Ventricles are in proportion. Patient has mild to moderate chronic ischemic change. No abnorma l extra-axial fluid collections. Mastoid air cells and visualized portions of the paranasal sinuses are clear. No acute bony findings. IMPRESSION: Motion degraded study shows no acute intracranial finding. Patient has moderate severity atrophy and mild to moderate chronic ischemic change. Nonhemorrhagic CV A can be masked by this pattern.
[2020-08-15 12:44] LABS: Urine Bacteria NONE SEEN /HPF (NONE SEEN); Urine RBC NONE SEEN /HPF (NONE SEEN)
[2020-08-15 12:45] LABS: Urine Culture Reflex Order NOT NEEDED
[2020-08-15 13:05] LABS: Urine Blood NEGATIVE (NEG); Urine Glucose NEGATIVE (NEG); Urine Protein NEGATIVE (NEG); Urine pH 7.5 (5.0-7.0)
--- NOTE | 2020-08-15 13:29 | RAD REPORT ---
EXAM DESCRIPTION: RAD - Chest Single View - 08/15/2020 10:54 am CLINICAL HISTORY: AMS COMPARISON: Two view chest June 2019 TECHNIQUE: AP portable chest image was obtained 08/15/2020 10:54 am . FINDINGS: Lung volumes are decreased from the prior study. Interstitial and alveolar patchy opacitie s are present in the lower right lung field. No failure or volume overload. Trachea is midline. Multi ple curvilinear radiopaque densities overlie the right-side of the chest probably part of skin or manjit thing artifact. Heart and vasculature are normal. No measurable pleural effusion and no pneumothorax. No acute bony abnormality seen. No acute aortic findings suspected. IMPRESSION: Patchy lung parenchymal opacification lower right lung field. In the acute clinical sett ing, finding could represent early pneumonia. Correlation is needed with clinical findings.
--- NOTE | 2020-08-15 13:45 | EDPHYS ---
Physician Documentation [facility] Name: Tricia Pineda Age: 80 yrs Sex: Male : 1940 Arrival Date: 08/15/2020 Time: 09:56 Bed 7 Private MD: ED Physician Raúl Mathis HPI: 08/15 10:18 This 80 yrs old Male presents to ER via EMS with complaints of weakness and kdr hypoxia. 10:18 Family called EMS due to patient being weak and not feeling well. They stated that he kdr is normally able to use a walker but today was not able to support himself and he was indicating that he was generally not feeling well. Recently had swallow study for trouble swallowing, unknown results, very little water intake. No recent trauma. Denies pain. Family and caregiver report generalized weakness, nothing focal to report. No recent changes in medication.. Onset: The symptoms/episode began/occurred this morning. Severity of symptoms: At their worst the symptoms were mild moderate in the emergency department the symptoms are unchanged. The patient has not experienced similar symptoms in the past. The patient has not recently seen a physician. Historical: - Allergies: 13:35 No Known Allergies; tw2 - Home Meds: 18:00 carbidopa-levodopa 25-250 mg Oral tab 2 tabs 4 times per day [Active]; levothyroxine 25 jl7 mcg tab 1 tab once daily [Active]; triamterene-hydrochlorothiazid 37.5-25 mg Oral cap 1 cap once daily [Active]; pioglitazone 30 mg oral tab 1 tab once daily [Active]; folic acid 1 mg Oral tab 1 tab [Active]; Vitamin D Oral [Active]; ziprasidone HCl 20 mg oral cap [Active]; - PMHx: 18:00 Parkinsons; Diabetes - NIDDM; Hypothyroidism; Hypertension; Colitis; jl7 - PSHx: 18:00 back surgery; Knee surgery; foot surgery; jl7 - Immunization history:: Adult Immunizations. - Family history:: not pertinent. - Social history:: Smoking status: . - Hospitalizations: : No recent hospitalization is reported. ROS: 10:18 Constitutional: Negative for fever, chills - has had weight loss, Eyes: Negative for kdr injury, pain, redness, and discharge, Neck: Negative for injury, pain, and swelling, Cardiovascular: Negative for chest pain, palpitations, and edema, Respiratory: Negative for shortness of breath, cough, wheezing, and pleuritic chest pain, Abdomen/GI: Negative for abdominal pain, nausea, vomiting, diarrhea, and constipation, Back: Negative for injury and pain, : Negative for injury, bleeding, discharge, and swelling, MS/Extremity: Negative for injury and deformity, Skin: Negative for injury, rash, and discoloration, Psych: Negative for depression, anxiety, suicide ideation, homicidal ideation, and hallucinations, Allergy/Immunology: Negative for hives, rash, and allergies, Endocrine: Negative for neck swelling, polydipsia, polyuria, polyphagia, and marked weight changes, Hematologic/Lymphatic: Negative for swollen nodes, abnormal bleeding, and unusual bruising. 10:18 Neuro: Positive for weakness. Exam: 10:29 ECG was reviewed by the Attending Physician. kdr 11:25 Constitutional: Thin male, no acute distress Head/Face: Normocephalic, atraumatic. 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 Neuro: Awake and alert, GCS 15, oriented to person, place, and situation. Cranial nerves II-XII grossly intact. Motor strength 4/5 bilateral upper ext, 3/5 bilateral lower ext, equal. Unable to get elbows off bed. Sensory grossly intact. Gait not tested. Vital Signs: 09:56 BP 158 / 66; Pulse 53; Resp 20; Temp 96.7(T); Pulse Ox 99% on R/A; Weight 81.65 kg; ec1 10:28 Temp 94.4(O); ec1 11:20 BP 136 / 62; Pulse 54; Resp 18; Pulse Ox 95% on R/A; tw2 11:24 Temp 97.9(O); tw2 12:28 Pulse Ox 89% on R/A; ec1 12:30 BP 122 / 67; Pulse 82; Resp 19; Pulse Ox 96% on 4 lpm NC; ec1 13:30 BP 113 / 55; Pulse 98; Resp 17; Pulse Ox 95% on 4 lpm NC; ec1 14:00 BP 128 / 58; Pulse 105; Resp 20; Pulse Ox 95% on 4 lpm NC; ec1 14:38 BP 101 / 63; Pulse 111; Resp 19; Pulse Ox 100% on 4 lpm NC; ec1 17:40 BP 101 / 72; Pulse 91; Resp 19; Pulse Ox 97% on R/A; tw2 18:40 BP 103 / 71; Pulse 88; Resp 17; Pulse Ox 98% on 4 lpm NC; tw2 19:15 BP 94 / 54; Pulse 79; Resp 19; Pulse Ox 95% ; rr5 12:30 pts family states "he is having a hard time with these masks" ec1 MDM: 10:36 Patient medically screened. rn 13:41 Differential Diagnosis pneumonia, UTI, dehydration, medication side effect, aspiration. rn Data reviewed: vital signs, nurses notes, lab test result(s), EKG, radiologic studies, CT scan, plain films, and as a result, I will admit patient. Counseling: I had a detailed discussion with the patient and/or guardian regarding: the historical points, exam findings, and any diagnostic results supporting the discharge/admit diagnosis, lab results, radiology results, the need for further work-up and treatment in the hospital. Admission orders: after a detailed discussion of the patient's condition and case, the admit orders are written by me. ED course: Pt with right lung infiltrate, likely 2/[address] Ramos for hypothermia, pneumonia, oxygen 92%, and generalized weakness. . 08/15 09:57 Order name: Amylase, Serum; Complete Time: 11:16 kdr 08/15 09:57 Order name: Basic Metabolic Panel; Complete Time: 11:16 kdr 08/15 09:57 Order name: Blood Culture Adult (2) kdr 08/15 09:57 Order name: CBC with Diff; Complete Time: 11:16 kdr 08/15 09:57 Order name: Ckmb; Complete Time: 11:16 kdr 08/15 09:57 Order name: CPK; Complete Time: 11:16 kdr 08/15 09:57 Order name: Lactate; Complete Time: 12:30 kdr 08/15 09:57 Order name: LFT's; Complete Time: 11:16 kdr 08/15 09:57 Order name: Lipase; Complete Time: 11:16 kdr 08/15 09:57 Order name: Procalcitonin; Complete Time: 12:30 kdr 08/15 09:57 Order name: Protime (+inr); Complete Time: 11:16 kdr 08/15 09:57 Order name: Ptt, Activated; Complete Time: 11:16 kdr 08/15 09:57 Order name: Troponin (emerg Dept Use Only); Complete Time: 11:16 kdr 08/15 09:57 Order name: Urine Microscopic Only; Complete Time: 13:12 kdr 08/15 09:57 Order name: Chest Single View XRAY; Complete Time: 13:35 kdr 08/15 09:57 Order name: Accucheck; Complete Time: 10:14 kdr 08/15 09:57 Order name: Cardiac monitoring; Complete Time: 10:14 kdr 08/15 09:57 Order name: EKG - Nurse/Tech; Complete Time: 10:10 kdr 08/15 09:57 Order name: IV Saline Lock - Large Bore; Complete Time: 10:29 kdr 08/15 09:57 Order name: Labs collected and sent; Complete Time: 10:29 kdr 08/15 09:57 Order name: O2 Per Protocol; Complete Time: 10:29 kdr 08/15 09:57 Order name: CT Head Brain wo Cont; Complete Time: 12:30 kdr 08/15 10:27 Order name: Glucose, Ancillary Testing; Complete Time: 11:16 [facility] 08/15 11:16 Order name: Urine Dipstick--Ancillary (enter results); Complete Time: 13:12 bd 08/15 17:41 Order name: COVID-19 rn 08/15 18:14 Order name: [facility] 08/15 19:21 Order name: SARS-COV-2 RT PCR [facility] 08/15 09:57 Order name: O2 Sat Monitoring; Complete Time: 10:29 kdr 08/15 09:57 Order name: Urine Dipstick-Ancillary (obtain specimen); Complete Time: 11:24 kdr EC:29 Rate is 45 beats/min. Rhythm is regular, Sinus bradycardia with No ectopy, Right bundle kdr branch block. QRS [place] is Normal. ME interval is normal. QRS interval is normal. Clinical impression: Sinus bradycardia. Administered Medications: 10:17 Drug: NS 0.9% (30 ml/kg) 30 ml/kg {Note: 500 mL Bolus hung per ERD.} Route: IV; Rate: jl7 bolus; Site: right antecubital; 10:29 Not Given (Duplicate Order): NS 0.9% 500 ml IV at bolus once tw2 14:09 Drug: LevaQUIN 750 mg Volume: 150 ml; Route: IVPB; Infused Over: 90 mins; Site: right jl7 antecubital; 16:39 Follow up: Response: No adverse reaction; IV Status: Completed infusion tw2 Disposition: 08/15/20 13:44 Hospitalization ordered by Rafael Ramos for Inpatient Admission. Preliminary diagnosis are Pneumonia, unspecified organism - Aspiration, Dehydration, Weakness, Hypoxemia. - Bed requested for Telemetry/MedSurg (Inpatient). - Status is Inpatient Admission. ea - Condition is Stable. - Problem is new. - Symptoms have improved. Signatures: Dispatcher [employer] EDMS Tona Vasquez Kevin, MD MD kdr Nieto, Roman, MD MD rn Wise, Tara, RN RN tw2 Desiree Rodriguez RN RN jl7 Vicky Ortiz RN RN ea Corrections: (The following items were deleted from the chart) 11:26 10:18 Family called EMS due to patient being weak and not feeling well. They stated rn that he is normally able to use a walker but today was not able to support himself and he was indicating that he was generally not feeling well. kdr 18:30 13:44 Hospitalization Ordered by Rafael Ramos MD for Inpatient Admission. Preliminary bd diagnosis is Pneumonia, unspecified organism - Aspiration; Dehydration; Weakness; Hypoxemia. Bed requested for Telemetry/MedSurg (Inpatient). Status is Inpatient Admission. Condition is Stable. Problem is new. Symptoms have improved. rn 19:54 18:30 08/15/2020 13:44 Hospitalization Ordered by Rafael Ramos MD for Inpatient ea Admission. Preliminary diagnosis is Pneumonia, unspecified organism - Aspiration; Dehydration; Weakness; Hypoxemia. Bed requested for Telemetry/MedSurg (Inpatient). Status is Inpatient Admission. Condition is Stable. Problem is new. Symptoms have improved. bd
--- NOTE | 2020-08-15 13:45 | ER ---
Nurse's Notes [facility] Name: Tricia Pineda Age: 80 yrs Sex: Male : 1940 Arrival Date: 08/15/2020 Time: 09:56 Bed 7 Private MD: Diagnosis: Pneumonia, unspecified organism-Aspiration;Dehydration;Weakness;Hypoxemia Presentation: 08/15 09:56 Chief complaint: EMS states: weakness. Chief complaint: EMS states: [facility] [place] [facility] ec1 states: "Pts family called us out for acute generalized weakness that occurred 1-2 hours ago. He has a history of parkinsons diease and normally uses a walker. They said he was unable to hold himself up. They said he was feeling dizzy and seeing aspots. His bgl was 188, he was Sb with 1 degree block and PAC's. His bp was 120-130 systolic. We do not have a good baseline. He had a barrium swallow done yesterday because he has difficulty swallowing normally. He had rhonchi and was high 80's to low 90's and I put him on 4 L NC". Coronavirus screen: Client denies travel out of the [place] in the last 14 days. Client presents with at least one sign or symptom that may indicate coronavirus-19. Provider contacted for isolation considerations. Ebola Screen: Patient negative for fever greater than or equal to 101.5 degrees Fahrenheit, and additional compatible Ebola Virus Disease symptoms. Initial Sepsis Screen: Does the patient meet any 2 criteria? Altered Mental Status. Does the patient have a suspected source of infection? No. Patient's initial sepsis screen is negative. Onset of symptoms was August 15, 2020 at 08:00. 09:56 Method Of Arrival: EMS: [facility] [place] [facility] ec1 09:56 Acuity: SPENSER 2 ec1 10:31 Initial Sepsis Screen: Does the patient meet any 2 criteria?. Initial Sepsis Screen: tw2 Does the patient meet any 2 criteria?. Risk Assessment: Do you want to hurt yourself or someone else? Patient reports no desire to harm self or others. Triage Assessment: 10:02 General: Appears distressed, uncomfortable, ill, Behavior is cooperative, anxious, ec1 restless. Pain: Noted to be confused, grimacing, restless. EENT: No deficits noted. Neuro: Level of Consciousness is awake, obeys commands, confused, Oriented to person, Pupils are Pupil Size: 3 mm bilateral Reports dizziness. Cardiovascular: Rhythm is norma arythmmia. Respiratory: Airway is patent Respiratory effort is labored, Respiratory pattern is tachypnea Breath sounds are diminished bilaterally. GI: No signs and/or symptoms were reported involving the gastrointestinal system. : No signs and/or symptoms were reported regarding the genitourinary system. Derm: No signs and/or symptoms reported regarding the dermatologic system. Musculoskeletal: No signs and/or symptoms reported regarding the musculoskeletal system. Historical: - Allergies: 13:35 No Known Allergies; tw2 - Home Meds: 18:00 carbidopa-levodopa 25-250 mg Oral tab 2 tabs 4 times per day [Active]; levothyroxine 25 jl7 mcg tab 1 tab once daily [Active]; triamterene-hydrochlorothiazid 37.5-25 mg Oral cap 1 cap once daily [Active]; pioglitazone 30 mg oral tab 1 tab once daily [Active]; folic acid 1 mg Oral tab 1 tab [Active]; Vitamin D Oral [Active]; ziprasidone HCl 20 mg oral cap [Active]; - PMHx: 18:00 Parkinsons; Diabetes - NIDDM; Hypothyroidism; Hypertension; Colitis; jl7 - PSHx: 18:00 back surgery; Knee surgery; foot surgery; jl7 - Immunization history:: Adult Immunizations. - Family history:: not pertinent. - Social history:: Smoking status: . - Hospitalizations: : No recent hospitalization is reported. Screenin:04 Abuse screen: Denies threats or abuse. Nutritional screening: No deficits noted. tw2 Tuberculosis screening: No symptoms or risk factors identified. Fall Risk Secondary diagnosis (15 points) impaired mobility. Assessment: 10:05 Reassessment: see triage assessment. tw2 10:18 Reassessment: ERD gave VO to administer 500 mL Bolus at this time. jl7 11:20 Reassessment: Patient appears in no apparent distress at this time. No changes from tw2 previously documented assessment. Patient and/or family updated on plan of care and expected duration. Pain level reassessed. 12:20 Reassessment: Patient appears in no apparent distress at this time. No changes from tw2 previously documented assessment. Patient and/or family updated on plan of care and expected duration. Pain level reassessed. 13:30 Reassessment: Patient appears in no apparent distress at this time. No changes from tw2 previously documented assessment. Patient and/or family updated on plan of care and expected duration. Pain level reassessed. 14:30 Reassessment: Patient appears in no apparent distress at this time. No changes from tw2 previously documented assessment. Patient and/or family updated on plan of care and expected duration. Pain level reassessed. 15:30 Reassessment: Patient appears in no apparent distress at this time. No changes from tw2 previously documented assessment. Patient and/or family updated on plan of care and expected duration. Pain level reassessed. 16:30 Reassessment: Patient appears in no apparent distress at this time. No changes from tw2 previously documented assessment. Patient and/or family updated on plan of care and expected duration. Pain level reassessed. 17:30 Reassessment: Patient appears in no apparent distress at this time. No changes from tw2 previously documented assessment. Patient and/or family updated on plan of care and expected duration. Pain level reassessed. 18:30 Reassessment: Patient appears in no apparent distress at this time. No changes from tw2 previously documented assessment. Patient and/or family updated on plan of care and expected duration. Pain level reassessed. 19:25 Reassessment: Patient and/or family updated on plan of care and expected duration. Pain ea level reassessed. Patient is alert, oriented x 3, equal unlabored respirations, skin warm/dry/pink. Pt admitted to second floor, report called to Joel PRICE. 19:52 Reassessment: Patient and/or family updated on plan of care and expected duration. Pain ea level reassessed. Patient is alert, oriented x 3, equal unlabored respirations, skin warm/dry/pink. Report called to receiving nurse. Pt admitted to second floor. Left ED via stretcher tolerating well. Vital Signs: 09:56 BP 158 / 66; Pulse 53; Resp 20; Temp 96.7(T); Pulse Ox 99% on R/A; Weight 81.65 kg; ec1 10:28 Temp 94.4(O); ec1 11:20 BP 136 / 62; Pulse 54; Resp 18; Pulse Ox 95% on R/A; tw2 11:24 Temp 97.9(O); tw2 12:28 Pulse Ox 89% on R/A; ec1 12:30 BP 122 / 67; Pulse 82; Resp 19; Pulse Ox 96% on 4 lpm NC; ec1 13:30 BP 113 / 55; Pulse 98; Resp 17; Pulse Ox 95% on 4 lpm NC; ec1 14:00 BP 128 / 58; Pulse 105; Resp 20; Pulse Ox 95% on 4 lpm NC; ec1 14:38 BP 101 / 63; Pulse 111; Resp 19; Pulse Ox 100% on 4 lpm NC; ec1 17:40 BP 101 / 72; Pulse 91; Resp 19; Pulse Ox 97% on R/A; tw2 18:40 BP 103 / 71; Pulse 88; Resp 17; Pulse Ox 98% on 4 lpm NC; tw2 19:15 BP 94 / 54; Pulse 79; Resp 19; Pulse Ox 95% ; rr5 12:30 pts family states "he is having a hard time with these masks" ec1 ED Course: 09:56 Patient arrived in ED. ec1 09:56 Akin Salas MD is Attending Physician. kdr 09:56 Arm band placed on. tw2 09:57 Inserted saline lock: 18 gauge in right antecubital area, using aseptic technique. ec1 Blood collected. 10:02 Triage completed. ec1 10:10 EKG done, by ED staff, reviewed by Aikn Salas MD. em1 10:18 Patient has correct armband on for positive identification. Placed in gown. Bed in low jl7 position. Call light in reach. Side rails up X2. compliance monitor on. Pulse ox on. NIBP on. Warm blanket given. 10:29 Luz Marina Dial, ALBERT is Primary Nurse. tw2 10:36 Attending Physician role handed off by Akin Salas MD rn 10:36 Raúl Mathis MD is Attending Physician. rn 10:45 CT Head Brain wo Cont In Process Unspecified. EDMS 10:53 Chest Single View XRAY In Process Unspecified. EDMS 10:53 CT completed. Pt tolerated procedure poorly. Patient moved to CT via stretcher. Patient sw moved back from CT. 13:43 Rafael Ramos MD is Hospitalizing Provider. rn 18:54 Report given to ALBERT Pappas. tw2 19:26 No provider procedures requiring assistance completed. Patient admitted, IV remains in ea place. Administered Medications: 10:17 Drug: NS 0.9% (30 ml/kg) 30 ml/kg {Note: 500 mL Bolus hung per ERD.} Route: IV; Rate: jl7 bolus; Site: right antecubital; 10:29 Not Given (Duplicate Order): NS 0.9% 500 ml IV at bolus once tw2 14:09 Drug: LevaQUIN 750 mg Volume: 150 ml; Route: IVPB; Infused Over: 90 mins; Site: right jl7 antecubital; 16:39 Follow up: Response: No adverse reaction; IV Status: Completed infusion tw2 Output: 11:24 Urine: 300ml (Voided); Total: 300ml. tw2 Outcome: 13:44 Decision to Hospitalize by Provider. rn 19:26 Admitted to Med/surg accompanied by tech, via stretcher, room 221, with chart, Report ea called to oJel RN 19:26 Condition: stable 19:26 Instructed on the need for admit. 19:54 Patient left the ED. ea Signatures: Dispatcher [employer] EDMS Akin Salas MD MD kdr Nieto, Roman, MD MD rn Martinez, Eric em1 Warren, Shannon sw Wise, Tara RN RN tw2 Desiree Rodriguez RN RN jl7 Vicky Ortiz RN Mian Pratt ea, RN RN rr5 Alannah Brady, RN RN ec1 Corrections: (The following items were deleted from the chart) 15:52 12:30 BP 122 / 67; Pulse 82bpm; Resp 19bpm; Pulse Ox 96% RA; tw2 ec1 15:52 13:30 BP 113 / 55; Pulse 98bpm; Resp 17bpm; Pulse Ox 95% RA; tw2 ec1 15:52 14:00 BP 128 / 58; Pulse 105bpm; Resp 20bpm; Pulse Ox 95% RA; tw2 ec1 15:52 14:38 BP 101 / 63; Pulse 111bpm; Resp 19bpm; Pulse Ox 100% RA; tw2 ec1
[2020-08-15] MEDS ORDERED: Levofloxacin 750mg IV 750 MG/150 ML BAG IV ONE (14:15)
[2020-08-15] MEDS ORDERED: ALBUTEROL 2.5 MG/3 ML NEB SOL NEB PRN (19:43)
[2020-08-15] MEDS ORDERED: IPRATROPIUM BROM 0.5MG/2.5ML NEB PRN (19:43)
[2020-08-15] MEDS ORDERED: ONDANSETRON 4 MG/2 ML VIAL IV PRN (19:43)
[2020-08-15] MEDS ORDERED: ACETAMINOPHEN 500 MG TAB PO PRN (19:43)
[2020-08-15] MEDS ORDERED: D50W 25 GM/50 ML SYRINGE IV PRN (21:00)
[2020-08-15] MEDS ORDERED: GLUCAGON 1 MG/VIAL IM PRN (21:00)
[2020-08-15] MEDS ORDERED: CARBIDOPA/LEVODOPA 25/100 TAB PO SCH (21:00)
[2020-08-15] MEDS: INSULIN -REGULAR HUMAN 50 UNIT/0.5 ML ML SQ SCH (21:00)
[2020-08-15] MEDS ORDERED: NACHLORIDE 0.45% 1,000 ML IV SCH (21:00)
[2020-08-15] MEDS: ZIPRASIDONE 20 MG CAP PO SCH (21:21)
[2020-08-15] MEDS ORDERED: NACHLORIDE 0.45% 1,000 ML IV ONE (21:22)
[2020-08-16 00:38] VITALS: BMI 15.0
[2020-08-16] MEDS: CARBIDOPA/LEVODOPA 25/250 TAB PO SCH ×2 (05:28→14:07)
[2020-08-16 05:54] LABS: BUN Blood Urea Nitrogen 15 mg/dL (7-18); Bicarbonate 32 mmol/L (21-32); Glucose Level 102 mg/dL (74-106); Potassium 3.8 mmol/L (3.5-5.1); Sodium Level 138 mmol/L (136-145)
[2020-08-16 05:56] LABS: Absolute Lymphocytes (CBC) 1.6 K/uL (0.7-4.9); Basophils % 0.3 % (0-1.3); Hematocrit 32.5 % (39.6-49.0); Lymphocytes % 12.4 % (15.3-44.8); MPV 9.1 fL (7.6-11.3); RBC Red Blood Cell Count 3.35 M/uL (4.33-5.43)
[2020-08-16] MEDS: INSULIN -REGULAR HUMAN 50 UNIT/0.5 ML ML SQ SCH ×4 (07:30→20:42)
[2020-08-16] MEDS ORDERED: BUSPIRONE HCL 5 MG TABLET PO SCH (09:00)
[2020-08-16] MEDS ORDERED: PIOGLITAZONE 15 MG TAB PO SCH (09:00)
[2020-08-16] MEDS ORDERED: FOLIC ACID 1 MG TABLET PO SCH (09:00)
[2020-08-16] MEDS ORDERED: MONTELUKAST 10 MG TAB PO SCH (09:00)
[2020-08-16] MEDS ORDERED: GLIMEPIRIDE 2 MG TABLET PO SCH (09:00)
[2020-08-16] MEDS ORDERED: THYROID 30 MG TAB PO SCH (09:00)
[2020-08-16] MEDS ORDERED: DIPHENHYDRAMINE 25 MG TAB/CAP PO ONE (09:00)
[2020-08-16] MEDS: CARBIDOPA/LEVODOPA 25/100 TAB PO SCH ×2 (11:26→17:42)
--- NOTE | 2020-08-16 13:31 | P.HP ---
Certification for Inpatient Patient admitted to: Inpatient With expected LOS: >2 Midnights Practitioner: I am a practitioner with admitting privileges, knowledge of patient current condition, hospital course, and medical plan of care. Services: Services provided to patient in accordance with Admission requirements found in Title 42 Section 412.3 of the Code of Federal Regulations Patient History Date of Service: 08/16/20 Reason for admission: WEAKNESS, COULD NOT WALK. History of Present Illness: HAS END STAGE PARKIONSON'S AND GOT WEAK, COULD NOT WALK. AT [facility] HE IS VERY CACHECTIC, WEAK, HAS LOST A LOT OF WEIGHT, HAS TREMORS AND WALKS A FEW STEPS WITH WALKER. HE WAS FOUND TO HAVE SMALL PNEUMONIA AND MILD LOW BP. Allergies morphine Allergy (Verified 08/15/20 20:16) Itching/Hives/Rash; hallucinations Home Medications: Folic Acid [Folic Acid*] 1 mg PO DAILY 10/10/12 Glimepiride 4 mg PO DAILY 10/10/12 Infliximab [Remicade*] 100 mg IV SEECOM 10/10/12 Thyroid Tab [Mills Thyroid*] 15 mg PO DAILY 10/10/12 levoFLOXacin [Levaquin*] 500 mg PO DAILY #10 tab 11/07/13 Buspirone HCl [Buspar*] 10 mg PO DAILY 08/15/20 Carbidopa/Levodopa [Carbidopa-Levodopa 25-100 Tab] 2 tab PO BID 08/15/20 Carbidopa/Levodopa [Carbidopa-Levodopa 25-100 Tab] 25 - 250 mg PO BID 08/15/20 Montelukast [Singulair*] 1 tab PO DAILY 08/15/20 Pioglitazone HCl [Actos] 30 mg PO DAILY 08/15/20 Ziprasidone HCl [Geodon] 1 cap PO BEDTIME 08/15/20 - Past Medical/Surgical History Has patient received pneumonia vaccine in the past: Yes Diabetic: Yes -: Parkinsons -: Hypothyroidism -: Low testosterone level -: ulcerative colitis -: COPD -: Back surgery -: Right knee surgery -: Left foot surgery -: Both shoulder surgery - Family History Mother -: Diabetes Father -: Heart disease, Other (see notes) Notes: of heart attack - Social History Smoking Status: Former smoker Alcohol use: No CD- Drugs: No Caffeine use: Yes Review of Systems 10-point ROS is otherwise unremarkable Respiratory: As per HPI Physical Examination - Vital Signs Temperature: 97.4 F Blood Pressure: 98/54 Pulse: 65 Respirations: 17 Pulse Ox (%): 99 - Physical Exam General: Oriented x3, Mild distress HEENT: Atraumatic, PERRLA, Mucous membr. moist/pink, EOMI, Sclerae nonicteric Neck: Supple, 2+ carotid pulse no bruit, No LAD, Without JVD or thyroid abnormality Respiratory: Diminished Cardiovascular: Regular rate/rhythm, Normal S1 S2 Gastrointestinal: Normal bowel sounds, No tenderness Musculoskeletal: No tenderness Integumentary: No rashes Neurological: Normal gait, Normal speech, Normal strength at 5/5 x4 extr, Normal tone, Normal affect Lymphatics: No axilla or inguinal lymphadenopathy Assessment and Plan - Problems (Diagnosis) (1) Bacterial pneumonia Current Visit: Yes Status: Acute Plan: LEVAQUIN DAILY. NEBS PRN. (2) Parkinson disease Current Visit: Yes Status: Chronic Plan: SEVERE PARKINSON'S SHOULD BE ON HOSPICE BUT FAMILY NOT READY YET. CONTINUE THERAPY. (3) Hypotension Current Visit: Yes Status: Acute Plan: THIS IS USUALLY A PROBLEM. BP IS LOW AND WILL IMPROVE BUT HE ALSO HAS ORTHOSTASIS FROM PD. - Advance Directives Does patient have a Living Will: Yes Does patient have a Durable POA for Healthcare: Yes
[2020-08-16] MEDS ORDERED: Levofloxacin500mg IV 500 MG/100 ML BAG IV SCH (14:00)
[2020-08-16] MEDS: NACHLORIDE 0.45% 1,000 ML IV SCH (14:06)
[2020-08-16] MEDS: ZIPRASIDONE 20 MG CAP PO SCH (20:42)
[2020-08-16] MEDS ORDERED: GLUCERNA SHAKE 237 ML CAN PO SCH (21:00)
[2020-08-16 21:42] LABS: MPV 9.5 fL (7.6-11.3)
[2020-08-16 23:01] LABS: Platelet Estimate ADEQ
[2020-08-17 00:36] VITALS: O2SAT 98
[2020-08-17] MEDS: NACHLORIDE 0.45% 1,000 ML IV SCH (01:47)
[2020-08-17] MEDS: CARBIDOPA/LEVODOPA 25/250 TAB PO SCH (05:43)
[2020-08-17] MEDS ORDERED: INFLUENZA VACCINE (for 3y+) 0.5 ML DOSE IMVAC ONE (06:00)
[2020-08-17] MEDS ORDERED: THYROID 30 MG TAB PO SCH (06:30)
[2020-08-17 08:39] VITALS: BP 119/58; TEMP 97.3
[2020-08-17] MEDS ORDERED: ENOXAPARIN 40 MG/0.4 ML SQ SCH (09:00)
[2020-08-17] MEDS ORDERED: Levofloxacin 750mg IV 750 MG/150 ML BAG IV SCH (09:00)
--- NOTE | 2020-08-17 15:10 | P.DS ---
Admission Date: 08/15/20 Discharge Date: 08/17/20 Disposition: ROUTINE DISCHARGE Discharge Condition: GOOD Reason for Admission: WEAKNESS, COULD NOT WALK. - Problems (1) Bacterial pneumonia Status: Acute (2) Parkinson disease Status: Chronic (3) Hypotension Status: Acute Brief History of Present Illness: HAS END STAGE PARKIONSON'S AND GOT WEAK, COULD NOT WALK. AT BASELINE HE IS VERY CACHECTIC, WEAK, HAS LOST A LOT OF WEIGHT, HAS TREMORS AND WALKS A FEW STEPS WITH WALKER. HE WAS FOUND TO HAVE SMALL PNEUMONIA AND MILD LOW BP. Hospital Course: MR HUDDLESTON HAS ASPIRATION PNEUMONIA. SON CALLED TO LET ME KNOW THAT DR ARREDONDO DID MBS AND FOUND THAT HE IS ASPIRATION SEC. TO PARKINSON'S. SON AND DAUGHTER WILL DECIDE WHERE THEY WANT G TUBE DONE AND TAKE HIM TO LOCAL GI DOCTOR OR DR. VILLA. HE IS STABLE FO RHOME. HE WILL CONTINUE ANTIBIOTICS FOR 7 DAYS. Vital Signs/Physical Exam: Temp Pulse Resp BP Pulse Ox 97.3 F 75 15 119/58 L 94 08/17/20 08:00 08/17/20 08:00 08/17/20 08:00 08/17/20 08:00 08/17/20 08:00 General: Cachectic, Mild distress HEENT: Atraumatic, PERRLA, EOMI Neck: Supple, JVD not distended Respiratory: Clear to auscultation bilaterally, Normal air movement Cardiovascular: Regular rate/rhythm, Normal S1 S2 Gastrointestinal: Normal bowel sounds, No tenderness Musculoskeletal: No tenderness Integumentary: No rashes Neurological: Abnormal speech (ALL FROM SEVERE PARKINSON'S), Abnormal strength, Abnormal tone, Abnormal affect Lymphatics: No axilla or inguinal lymphadenopathy Laboratory Data at Discharge: WBC 12.5 K/uL (4.3-10.9) H D 08/16/20 05:27 Hgb 11.2 g/dL (13.6-17.9) L 08/16/20 05:27 Hct 32.5 % (39.6-49.0) L 08/16/20 05:27 Plt Count 262 K/uL (152-406) 08/16/20 20:50 PT 12.2 SECONDS (9.5-12.5) 08/15/20 10:15 INR 1.03 08/15/20 10:15 APTT 35.6 SECONDS (24.3-36.9) 08/15/20 10:15 Sodium 138 mmol/L (136-145) 08/16/20 05:27 Potassium 3.8 mmol/L (3.5-5.1) 08/16/20 05:27 BUN 15 mg/dL (7-18) 08/16/20 05:27 Creatinine 0.63 mg/dL (0.55-1.3) 08/16/20 05:27 Glucose 102 mg/dL (74-106) 08/16/20 05:27 Total Bilirubin 0.4 mg/dL (0.2-1.0) 08/15/20 10:15 AST 20 U/L (15-37) 08/15/20 10:15 ALT 8 U/L (12-78) L 08/15/20 10:15 Alkaline Phosphatase 101 U/L (45-117) 08/15/20 10:15 Troponin I < 0.02 ng/mL (0.0-0.045) 08/16/20 00:24 Amylase 48 U/L (25-115) 08/15/20 10:15 Lipase 49 U/L (73-393) L 08/15/20 10:15 Home Medications: Folic Acid [Folic Acid*] 1 mg PO DAILY 10/10/12 Glimepiride 4 mg PO DAILY 10/10/12 Infliximab [Remicade*] 100 mg IV SEECOM 10/10/12 Thyroid Tab [[place] Thyroid*] 15 mg PO DAILY 10/10/12 levoFLOXacin [Levaquin*] 500 mg PO DAILY #10 tab 11/07/13 Buspirone HCl [Buspar*] 10 mg PO DAILY 08/15/20 Carbidopa/Levodopa [Carbidopa-Levodopa 25-100 Tab] 2 tab PO BID 08/15/20 Carbidopa/Levodopa [Carbidopa-Levodopa 25-100 Tab] 25 - 250 mg PO BID 08/15/20 Montelukast [Singulair*] 1 tab PO DAILY 08/15/20 Pioglitazone HCl [Actos] 30 mg PO DAILY 08/15/20 Ziprasidone HCl [Geodon] 1 cap PO BEDTIME 08/15/20 levoFLOXacin [Levaquin] 750 mg PO DAILY #7 tab 08/17/20 New Medications: levoFLOXacin [Levaquin] 750 mg PO DAILY #7 tab Followup: Unknown,U [Primary Care Provider] -
== END 2020-08-17 08:53 | disposition home or self-care (01) | DRG 178 ==
LOC: ER 09:51 → ERHOLD 15:03 → 2ND 19:21
PROVIDERS: ADMIT Internal Medicine; ATTEND Internal Medicine
DX: J69.0 Pneumonitis due to inhalation of food and vomit (principal); E44.0 Moderate protein-calorie malnutrition; Z68.1 Body mass index [BMI] 19.9 or less, adult; G20 Parkinson's disease; I95.1 Orthostatic hypotension; I10 Essential (primary) hypertension; E11.9 Type 2 diabetes mellitus without complications; E03.9 Hypothyroidism, unspecified; L89.152 Pressure ulcer of sacral region, stage 2; J44.9 Chronic obstructive pulmonary disease, unspecified; Z79.899 Other long term (current) drug therapy; Z79.890 Hormone replacement therapy; Z79.84 Long term (current) use of oral hypoglycemic drugs; Z87.891 Personal history of nicotine dependence; Z20.828 Contact with and (suspected) exposure to other viral communicable diseases
CPT/HCPCS: 36415; 70450; 71045; 80048; 80076; 81003; 81015; 82150; 82550; 82553; 82947; 83605; 83690; 84145; 84484; 85025; 85049; 85610; 85730; 87040; 93005; 94640; 94760; 96365; 96366; 96375; 99285; J7040; U0003